=== PATIENT | female | born 1935 | race Caucasian/White ===

== ENCOUNTER 2017-12-09 02:07 | Emergency (ER) | payer MEDICARE, BC ==
[2017-12-09] MEDS ORDERED: Aspirin 81 MG Tab.Chew PO ONE (02:38)
[2017-12-09] MEDS ORDERED: Alum Hydrox/Mag Hydrox/Simeth 30 ML, Lidocaine 2% 15 ML PO ONE ×2 (02:38)
--- NOTE | 2017-12-09 02:41 | EDM.PDOC ---
ED HPI GENERAL MEDICAL PROBLEM - General Chief Complaint: Chest Pain Stated Complaint: CHEST PAINS Time Seen by Provider: 12/09/17 02:25 - History of Present Illness INITIAL COMMENTS - FREE TEXT/NARRATIVE: 82-year-old female presents emergency room with chest pain. Chest pain started about an hour and a half ago she describes it as a burning underneath her sternum. The patient has had similar episodes in the past she's had myocardial infarction the past is been difficult to find with no significant EKG changes and no significant troponin rises. With her last IL she had a mild troponin rise and because she was not a candidate for stress testing was sent to [facility] where she underwent cardiac catheterization had 3 stents placed. Bilateral Chest Pain Score (Numeric/FACES): 9 - Related Data Allergies Allergy/AdvReac Type Severity Reaction Status Date / Time azithromycin Allergy Edema Verified 12/09/17 02:13 hydrocodone Allergy Airway Verified 12/09/17 02:13 Tightness Penicillins Allergy Swelling Verified 12/09/17 02:13 Home Meds: Home Meds Furosemide [Lasix] 40 mg PO DAILY 02/18/14 [History] Warfarin [Coumadin] 5 mg PO DAILY 02/18/14 [History] Ergocalciferol (Vitamin D2) [Vitamin D2] 50,000 units PO ASDIRECTED 04/18/14 [ History] Allopurinol [Allopurinol] 300 mg PO DAILY 04/03/16 [History] Atenolol 50 mg PO DAILY 04/03/16 [History] Calcium Carbonate [Calcium] 1,000 mg PO DAILY 04/03/16 [History] Cholecalciferol (Vitamin D3) [Vitamin D3] 1,000 unit PO DAILY 04/03/16 [History] Colchicine 0.6 mg PO ASDIRECTED 04/03/16 [History] Losartan [Cozaar] 50 mg PO DAILY 04/03/16 [History] Metoprolol Tartrate 12.5 mg PO BID 04/03/16 [History] Pantoprazole Sodium [Protonix] 40 mg PO DAILY 04/03/16 [History] atorvaSTATin [Lipitor] 40 mg PO BEDTIME 04/03/16 [History] Sucralfate [Carafate] 1 gm PO QID #30 tablet 12/09/17 [Rx] Past Medical History Cardiovascular History: Reports: Hypertension, [place], Stents Respiratory History: Reports: PE Gastrointestinal History: Reports: Diverticulosis, PUD Genitourinary History: Reports: Chronic Renal Insuffiency, Urinary Incontinence STONE CUTTER History: Reports: Musculoskeletal History: Reports: Back Pain, Chronic, Gout, Osteoarthritis, Osteoporosis Endocrine/Metabolic History: Reports: Obesity/BMI 30+ - Past Surgical History GI Surgical History: Reports: Appendectomy, Cholecystectomy, Colon, Colonoscopy , EGD Musculoskeletal Surgical History: Reports: Knee Replacement, Shoulder Replacement, Shoulder Surgery Social & Family History - Family History Family Medical History: Noncontributory - Tobacco Use Smoking Status *Q: Never Smoker Second Hand Smoke Exposure: No - Alcohol Use Days Per Week of Alcohol Use: 0 - Recreational Drug Use Recreational Drug Use: No - Living Situation & Occupation Living situation: Reports: , Alone Occupation: Retired ED ROS GENERAL - Review of Systems Review Of Systems: See Below Constitutional: Reports: Fever, Weight Gain Respiratory: Reports: Cough, Sputum Cardiovascular: Reports: Chest Pain GI/Abdominal: Reports: Other (Epigastric discomfort). Denies: Constipation, Diarrhea, Nausea, Vomiting : Reports: No Symptoms Musculoskeletal: Reports: No Symptoms Skin: Reports: No Symptoms Neurological: Reports: No Symptoms ED EXAM, GENERAL - Physical Exam Exam: See Below Exam Limited By: No Limitations General Appearance: Alert, No Apparent Distress Head: Atraumatic, Normocephalic Neck: Normal Inspection, Supple, Non-Tender, Full Range of Motion. No: Lymphadenopathy (L), Lymphadenopathy (R) Respiratory/Chest: No Respiratory Distress, Lungs Clear, Decreased Breath Sounds. No: Crackles, Rales, Rhonchi, Wheezing Cardiovascular: Regular Rate, Rhythm, No Edema, No Murmur GI/Abdominal: Normal Bowel Sounds, Soft, Other (She has significant epigastric and left upper quadrant discomfort) Back Exam: Normal Inspection. No: CVA Tenderness (L), CVA Tenderness (R) Extremities: Normal Inspection, No Pedal Edema Neurological: Alert, Oriented, Normal Cognition Psychiatric: Normal Affect Skin Exam: Warm, Dry EKG INTERPRETATION Rhythm: NSR Tennyson: Normal P-Wave: Absent (First-degree AV block) QRS: Other (Borderline poor R-wave progression) ST-T: Other (Specific nondiagnostic ST-T wave changes mild depression V4 5 and 6 ) QT: Normal EKG Interpretation Comments: No significant change. First degree AV block not seen on prior Course - Vital Signs Last Recorded V/S: Last Vital Signs Temp 36.0 C 12/09/17 02:14 Pulse 61 12/09/17 02:14 Resp 29 H 12/09/17 02:14 BP 117/55 L 12/09/17 02:58 Pulse Ox 96 12/09/17 02:14 - Orders/Labs/Meds Orders: Active Orders 24 hr Category Date Time Status EKG Documentation Completion [RC] STAT Care 12/09/17 02:36 Active Chest 1V Frontal [CR] Stat Exams 12/09/17 02:36 Taken Chest 2V [CR] Stat Exams 12/09/17 03:54 Taken Nitroglycerin [Nitrostat] Med 12/09/17 02:38 Active 0.4 mg SL Q5M PRN Sodium Chloride 0.9% [Normal Saline] 1,000 ml Med 12/09/17 02:45 Active IV ASDIRECTED Medication Orders Sodium Chloride (Normal Saline) 1,000 mls @ 50 mls/hr IV ASDIRECTED LJ Last Admin: 12/09/17 02:51 Dose: 50 mls/hr Nitroglycerin (Nitrostat) 0.4 mg SL Q5M PRN PRN Reason: Chest Pain Last Admin: 12/09/17 02:58 Dose: 0.4 mg Admin: 12/09/17 02:53 Dose: 0.4 mg Labs: Laboratory Tests 12/09/17 12/09/17 12/09/17 Range/Units 02:40 02:40 02:40 WBC 9.45 (3.98-10.04) K/mm3 RBC 4.12 (3.98-5.22) M/mm3 Hgb 12.4 (11.2-15.7) gm/L Hct 38.8 (34.1-44.9) % MCV 94.2 (79.4-94.8) fl MCH 30.1 (25.6-32.2) pg MCHC 32.0 L (32.2-35.5) g/dl RDW Std Deviation 49.7 H (36.4-46.3) fL Plt Count 229 (182-369) K/mm3 MPV 9.6 (9.4-12.3) fl Neutrophils % (Manual) 63 H (40-60) % Band Neutrophils % 0 (0-10) % Lymphocytes % (Manual) 28 (20-40) % Atypical Lymphs % 2 % Monocytes % (Manual) 5 (2-10) % Eosinophils % (Manual) 1 (0.7-5.8) % Basophils % (Manual) 1 (0.1-1.2) Platelet Estimate Adequate Plt Morphology Comment Normal Poikilocytosis 1+ slight Anisocytosis 1+ slight Microcytosis 1+ slight Macrocytosis 1+ slight Tear Drop Cells 1+ slight RBC Morph Comment Abnormal PT 10.5 (8.0-13.0) SECONDS INR 0.98 APTT 26 (22-36) SECONDS Sodium 140 (136-145) mEq/L Potassium 4.0 (3.5-5.1) mEq/L Chloride 103 (98-107) mEq/L Carbon Dioxide 28 (21-32) mEq/L Anion Gap 13.0 (5-15) BUN 23 H (7-18) mg/dL Creatinine 1.4 H (0.55-1.02) mg/dL Est Cr Clr Drug Dosing 30.00 mL/min Estimated GFR (MDRD) 36 (>60) mL/min BUN/Creatinine Ratio 16.4 (14-18) Glucose 123 H (83-115) mg/dL Calcium 9.2 (8.5-10.1) mg/dL Total Bilirubin 0.8 (0.2-1.0) mg/dL AST 90 H (15-37) U/L ALT 42 (14-59) U/L Alkaline Phosphatase 121 H (46-116) U/L Troponin I < 0.017 (0.00-0.056) ng/mL Total Protein 7.0 (6.4-8.2) g/dl Albumin 3.3 L (3.4-5.0) g/dl Globulin 3.7 gm/dL Albumin/Globulin Ratio 0.9 L (1-2) 12/09/17 Range/Units 06:05 WBC (3.98-10.04) K/mm3 RBC (3.98-5.22) M/mm3 Hgb (11.2-15.7) gm/L Hct (34.1-44.9) % MCV (79.4-94.8) fl MCH (25.6-32.2) pg MCHC (32.2-35.5) g/dl RDW Std Deviation (36.4-46.3) fL Plt Count (182-369) K/mm3 MPV (9.4-12.3) fl Neutrophils % (Manual) (40-60) % Band Neutrophils % (0-10) % Lymphocytes % (Manual) (20-40) % Atypical Lymphs % % Monocytes % (Manual) (2-10) % Eosinophils % (Manual) (0.7-5.8) % Basophils % (Manual) (0.1-1.2) Platelet Estimate Plt Morphology Comment Poikilocytosis Anisocytosis Microcytosis Macrocytosis Tear Drop Cells RBC Morph Comment PT (8.0-13.0) SECONDS INR APTT (22-36) SECONDS Sodium (136-145) mEq/L Potassium (3.5-5.1) mEq/L Chloride (98-107) mEq/L Carbon Dioxide (21-32) mEq/L Anion Gap (5-15) BUN (7-18) mg/dL Creatinine (0.55-1.02) mg/dL Est Cr Clr Drug Dosing mL/min Estimated GFR (MDRD) (>60) mL/min BUN/Creatinine Ratio (14-18) Glucose (83-115) mg/dL Calcium (8.5-10.1) mg/dL Total Bilirubin (0.2-1.0) mg/dL AST (15-37) U/L ALT (14-59) U/L Alkaline Phosphatase (46-116) U/L Troponin I < 0.017 (0.00-0.056) ng/mL Total Protein (6.4-8.2) g/dl Albumin (3.4-5.0) g/dl Globulin gm/dL Albumin/Globulin Ratio (1-2) Meds: Medications Generic Name Dose Route Start Last Admin Trade Name Freq PRN Reason Stop Dose Admin Sodium Chloride 1,000 mls @ 50 mls/hr 12/09/17 02:45 12/09/17 02:51 Normal Saline IV 50 mls/hr ASDIRECTED LJ Administration Nitroglycerin 0.4 mg 12/09/17 02:38 12/09/17 02:58 Nitrostat SL 0.4 mg Q5M PRN Administration Chest Pain Discontinued Medications Generic Name Dose Route Start Last Admin Trade Name Freq PRN Reason Stop Dose Admin Aspirin 324 mg 12/09/17 02:38 12/09/17 02:51 Aspirin PO 12/09/17 02:39 324 mg ONETIME ONE Administration Al Hydroxide/Mg Hydroxide 30 0 ml 12/09/17 02:38 12/09/17 03:07 ml/ Lidocaine HCl 15 ml PO 12/09/17 02:39 45 ml ONETIME ONE Administration Sucralfate 1 gm 12/09/17 03:52 12/09/17 04:02 Carafate PO 12/09/17 03:53 1 gm ONETIME ONE Administration - Re-Assessments/Exams Free Text/Narrative Re-Assessment/Exam: 12/09/17 03:52 Patient had some mild improvement in her chest pain with 2 sublingual nitroglycerin she had more significant improvement with the GI cocktail and at this point she has minimal discomfort. The patient's been having a more productive cough cough and up chunks stuff her portable chest x-ray is limited by body habitus and I cannot exclude a developing infiltrate we will try and obtain a two-view chest x-ray. 12/09/17 07:16 Ecotrin troponin is negative and the patient is been essentially pain-free. The patient had a dramatic improvement after getting GI cocktail however she's had atherosclerotic cardiovascular disease 3 stents placed year and a half ago. Discussed situation with her she like to go home. I think this is reasonable I think she was having some reflux and possibly some microaspiration that was causing her cough. She should continue her PPI therapy will add Carafate for one week she should follow-up with Dr. Mckeon Departure - Departure Time of Disposition: 07:26 Disposition: Still A Patient 30 Clinical Impression: Chest pain, GERD (gastroesophageal reflux disease) Prescriptions: Sucralfate [Carafate] 1 gm PO QID #30 tablet Referrals: Gilberto Roberts MD [Primary Care Provider] - Forms: ED Department Discharge Additional Instructions: Return to the emergency room with any questions problems worsening symptoms. Follow up with Dr. Mckeon in the next couple of days to reassess your situation. He been started on Carafate take this 4 times a day before each meal and at bedtime. Remember to take all your other medications at least an hour or 2 hours after using this medication. - My Orders Last 24 Hours: My Active Orders 12/09/17 02:36 EKG Documentation Completion [RC] STAT Chest 1V Frontal [CR] Stat 12/09/17 02:38 Nitroglycerin [Nitrostat] 0.4 mg SL Q5M PRN 12/09/17 02:45 Sodium Chloride 0.9% [Normal Saline] 1,000 ml IV ASDIRECTED 12/09/17 03:54 Chest 2V [CR] Stat - Assessment/Plan Last 24 Hours: My Active Orders 12/09/17 02:36 EKG Documentation Completion [RC] STAT Chest 1V Frontal [CR] Stat 12/09/17 02:38 Nitroglycerin [Nitrostat] 0.4 mg SL Q5M PRN 12/09/17 02:45 Sodium Chloride 0.9% [Normal Saline] 1,000 ml IV ASDIRECTED 12/09/17 03:54 Chest 2V [CR] Stat
[2017-12-09] MEDS ORDERED: Sodium Chloride 0.9% 1,000 ML IV SCH (02:45)
[2017-12-09] MEDS: Nitroglycerin 0.4 MG Tab.SL SL PRN ×2 (02:53→02:58)
[2017-12-09 02:59] VITALS: BP 117/55
[2017-12-09] MEDS ORDERED: Sucralfate Suspension 1 GM/10 ML Cup PO ONE (03:52)
--- NOTE | 2017-12-09 08:20 | CR ---
Chest: Frontal view of the chest was obtained. Comparison: Prior chest x-ray of 02/27/16. Heart is slightly enlarged. Tortuous thoracic aorta is seen. 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 Lungs show no acute parenchymal change. Bony structures are grossly intact. Impression: 1. Incidental findings. Nothing acute is appreciated on two-view chest x-ray. Diagnostic code #2
--- NOTE | 2017-12-09 08:20 | CR ---
Chest: Two views of the chest were obtained. Comparison: Prior chest x-ray of 12/09/17. Heart size is felt to be at the upper limits of normal. Tortuous thoracic aorta is seen. Lungs are clear. Right shoulder prosthesis is noted. Degenerative spurring is noted within the spine. Surgical clips are seen within the upper abdomen. Impression: 1. Nothing acute is appreciated on two-view chest x-ray. Incidental findings as noted above. Diagnostic code #2
== END 2017-12-09 07:45 | disposition home or self-care (01) ==
LOC: JD.ED 02:07
DX: K21.9 Gastro-esophageal reflux disease without esophagitis (principal); R07.9 Chest pain, unspecified; I25.2 Old myocardial infarction; Z88.6 Allergy status to analgesic agent; Z88.0 Allergy status to penicillin; Z88.1 Allergy status to other antibiotic agents; Z79.01 Long term (current) use of anticoagulants; Z79.899 Other long term (current) drug therapy; I10 Essential (primary) hypertension
CPT/HCPCS: 36415; 71045; 71046; 80053; 84484; 85025; 85610; 85730; 93005; 96360; 96361; 99285; A9270; J7040; 99284

== ENCOUNTER 2018-05-15 13:57 | Observation (INO) | payer MEDICARE, BC ==
[2018-05-15] MEDS ORDERED: Ondansetron 4 MG/2 ML SDV IVPUSH ONE (16:07)
[2018-05-15] MEDS ORDERED: Sodium Chloride 0.9% 10 ML Syringe FLUSH PRN (16:07)
[2018-05-15] MEDS ORDERED: HYDROmorphone 0.5 MG/0.5 ML SYRINGE IVPUSH ONE ×2 (16:07→18:07)
--- NOTE | 2018-05-15 16:24 | EDM.PDOC ---
ED HPI GENERAL MEDICAL PROBLEM - General Chief Complaint: Headache Stated Complaint: [facility] Time Seen by Provider: 05/15/18 15:53 Source of Information: Reports: Patient, Family History Limitations: Reports: No Limitations - History of Present Illness INITIAL COMMENTS - FREE TEXT/NARRATIVE: 82-year-old female arrives via ambulance service for evaluation and treatment of neck pain, neck swelling and a headache. Reportedly her symptoms started about one week ago on Thursday. They've progressively gotten worse. She was seen by her primary care provider on Thursday. She had an MRI of her cervical spine done. Associated diffuse arthritic changes. Currently working on getting an appointment with neurosurgery in the near future. Primary care provider prescribed her oxycodone and a muscle relaxer. Instructed to come to the ED if these do not help. She has been taking these as prescribed but she continues to have significant pain. Upon arrival to the ED she is complaining of significant neck and a headache. States her entire head is involved. Family is also very concerned about swelling to the right side of her neck. Due to long wait times in the ED family gave her 5 mg oxycodone prior to me evaluating the patient. She was getting medications per EMS. Duration: Week(s): (1) Location: Reports: Head, Neck Neck Pain Score (Numeric/FACES): 2 - Related Data Allergies Allergy/AdvReac Type Severity Reaction Status Date / Time adhesive tape Allergy Rash Verified 05/15/18 15:32 azithromycin Allergy Edema Verified 05/15/18 15:32 hydrocodone Allergy Airway Verified 05/15/18 15:32 Tightness Latex, Natural Rubber Allergy Rash Verified 05/15/18 15:32 Penicillins Allergy Swelling Verified 05/15/18 15:32 Sulfa (Sulfonamide Allergy Other Verified 05/15/18 15:32 Antibiotics) Home Meds: Home Meds Furosemide [Lasix] 40 mg PO DAILY 02/18/14 [History] Ergocalciferol (Vitamin D2) [Vitamin D2] 50,000 units PO ASDIRECTED 04/18/14 [ History] Allopurinol 300 mg PO DAILY 04/03/16 [History] Atenolol 50 mg PO DAILY 04/03/16 [History] Calcium Carbonate [Calcium] 1,000 mg PO DAILY 04/03/16 [History] Cholecalciferol (Vitamin D3) [Vitamin D3] 1,000 unit PO DAILY 04/03/16 [History] Losartan [Cozaar] 50 mg PO DAILY 04/03/16 [History] Metoprolol Tartrate 12.5 mg PO BID 04/03/16 [History] Pantoprazole Sodium [Protonix] 40 mg PO DAILY 04/03/16 [History] atorvaSTATin [Lipitor] 40 mg PO BEDTIME 04/03/16 [History] Apixaban [Eliquis] 1 tab PO BID 05/15/18 [History] Pnv17/Iron/Fa/Fish Oil/Dha/Om [Elite-OB 400] 05/15/18 [History] Past Medical History Cardiovascular History: Reports: Hypertension, MT, Stents Respiratory History: Reports: PE, Sleep Apnea Gastrointestinal History: Reports: Diverticulosis, PUD Genitourinary History: Reports: Chronic Renal Insuffiency, Urinary Incontinence TAKER OUT History: Reports: Musculoskeletal History: Reports: Back Pain, Chronic, Fracture, Gout, Osteoarthritis, Osteoporosis Endocrine/Metabolic History: Reports: Obesity/BMI 30+ - Past Surgical History Cardiovascular Surgical History: Reports: Coronary Artery Stent Other Cardiovascular Surgeries/Procedures: x 1 stent GI Surgical History: Reports: Appendectomy, Cholecystectomy, Colon, Colonoscopy , EGD Female Surgical History: Reports: None Musculoskeletal Surgical History: Reports: Knee Replacement, Shoulder Replacement, Shoulder Surgery Social & Family History - Family History Family Medical History: Noncontributory - Tobacco Use Smoking Status *Q: Never Smoker Second Hand Smoke Exposure: No - Caffeine Use Caffeine Use: Reports: Coffee - Recreational Drug Use Recreational Drug Use: No - Living Situation & Occupation Living situation: Reports: , Alone Occupation: Retired ED ROS GENERAL - Review of Systems Review Of Systems: See Below Constitutional: Denies: Fever, Weakness Respiratory: Denies: Shortness of Breath Cardiovascular: Denies: Chest Pain GI/Abdominal: Reports: Nausea. Denies: Abdominal Pain, Vomiting Musculoskeletal: Reports: Neck Pain Neurological: Reports: Headache. Denies: Numbness, Tingling - Physical Exam Exam: See Below Exam Limited By: No Limitations General Appearance: Alert, WD/WN, Moderate Distress, Obese Eye Exam: Bilateral Eye: Normal Inspection, PERRL Ears: Normal External Exam Nose: Normal Inspection Throat/Mouth: Normal Inspection, Normal Lips, Normal Voice, No Airway Compromise Head Exam: Atraumatic, Normocephalic Neck: Normal Inspection, Other (No swelling to the neck appreciated.) Respiratory/Chest: No Respiratory Distress, Lungs Clear, Normal Breath Sounds Cardiovascular: Normal Peripheral Pulses, Regular Rate, Rhythm, No Murmur GI/Abdominal: Soft, Non-Tender Neuro Exam (Abbreviated): Alert, Normal Cognition, Other (Gl[employer] strength 5 out of 5 bilaterally.) Extremities: Normal Inspection Psychiatric: Normal Affect, Normal Mood Skin Exam: Warm, Dry, Normal Color EKG INTERPRETATION EKG Date: 05/15/18 Time: 16:55 Rhythm: NSR Rate (Beats/Min): 81 [place]: Normal P-Wave: Present QRS: Normal ST-T: Normal QT: Normal EKG Interpretation Comments: Normal sinus rhythm at 81 bpm. No scheming changes. No left axis deviation. No left ventricular hypertrophy. No interventricular conduction delay. QTC within normal limits at 460. Reviewed by myself and Dr. Still. Course - Vital Signs Last Recorded V/S: Last Vital Signs Temp 98.7 F 05/15/18 14:18 Pulse 70 05/15/18 22:47 Resp 20 05/15/18 22:16 BP 169/82 H 05/15/18 22:31 Pulse Ox 93 L 05/15/18 22:47 - Orders/Labs/Meds Orders: Active Orders 24 hr Category Date Time Status Cardiac Monitoring [RC] . DIRECTED Care 05/15/18 16:16 Active Peripheral IV Care [RC] . DIRECTED Care 05/15/18 16:08 Active Chest 1V Frontal [CR] Stat Exams 05/15/18 16:07 Taken Head wo Cont [CT] Stat Exams 05/15/18 16:07 Taken CULTURE BLOOD [BC] Stat Lab 05/15/18 16:40 Received CULTURE BLOOD [BC] Stat Lab 05/15/18 17:09 Received RESPIRATORY PANEL Stat Lab 05/15/18 19:22 Ordered UA W/MICROSCOPIC [URIN] Stat Lab 05/15/18 22:00 Ordered [facility] [REF] Stat Lab 05/15/18 17:04 Received Sodium Chloride 0.9% [Saline Flush] Med 05/15/18 16:07 Active 10 ml FLUSH ASDIRECTED PRN Blood Culture x2 Reflex Set [OM.PC] Stat Oth 05/15/18 16:10 Ordered Peripheral IV Insertion Adult [OM.PC] Routine Oth 05/15/18 16:06 Ordered Medication Orders Apixaban (Eliquis) 2.5 mg PO BID LJ Gabapentin (Neurontin) 300 mg PO TID LJ Hydromorphone HCl (Dilaudid) 0.5 mg IVPUSH Q4H PRN PRN Reason: Pain Methylprednisolone Sodium Succinate (Solu-Medrol) 125 mg IVPUSH Q6H LJ Last Admin: 05/16/18 00:20 Dose: 125 mg Sodium Chloride (Saline Flush) 10 ml FLUSH ASDIRECTED PRN PRN Reason: Keep Vein Open Last Admin: 05/15/18 16:21 Dose: 10 ml Labs: Laboratory Tests 05/15/18 05/15/18 05/15/18 Range/Units 14:15 16:15 17:04 WBC 10.11 H (3.98-10.04) K/mm3 RBC 4.16 (3.98-5.22) M/mm3 Hgb 12.8 (11.2-15.7) gm/L Hct 40.1 (34.1-44.9) % MCV 96.4 H (79.4-94.8) fl MCH 30.8 (25.6-32.2) pg MCHC 31.9 L (32.2-35.5) g/dl RDW Std Deviation 47.8 H (36.4-46.3) fL Plt Count 216 (182-369) K/mm3 MPV 9.8 (9.4-12.3) fl Neutrophils % (Manual) 70 H (40-60) % Band Neutrophils % 8 (0-10) % Lymphocytes % (Manual) 16 L (20-40) % Atypical Lymphs % 0 % Monocytes % (Manual) 6 (2-10) % Eosinophils % (Manual) 0 L (0.7-5.8) % Basophils % (Manual) 0 L (0.1-1.2) Toxic Granulation 1+ slight Platelet Estimate Adequate RBC Morph Comment Normal Sodium 138 (136-145) mEq/L Potassium 5.0 (3.5-5.1) mEq/L Chloride 104 (98-107) mEq/L Carbon Dioxide 28 (21-32) mEq/L Anion Gap 11.0 (5-15) BUN 18 (7-18) mg/dL Creatinine 1.1 H (0.55-1.02) mg/dL Est Cr Clr Drug Dosing TNP Estimated GFR (MDRD) 48 (>60) mL/min BUN/Creatinine Ratio 16.4 (14-18) Glucose 102 (83-115) mg/dL Lactic Acid 0.7 (0.4-2.0) mmol/L Calcium 9.0 (8.5-10.1) mg/dL Magnesium 1.8 (1.8-2.4) mg/dl Total Bilirubin 0.4 (0.2-1.0) mg/dL AST 31 (15-37) U/L ALT 21 (14-59) U/L Alkaline Phosphatase 96 (46-116) U/L Troponin I < 0.017 (0.00-0.056) ng/mL C-Reactive Protein 4.0 H* (<1.0) mg/dL Total Protein 7.4 (6.4-8.2) g/dl Albumin 3.2 L (3.4-5.0) g/dl Globulin 4.2 gm/dL Albumin/Globulin Ratio 0.8 L (1-2) Meds: Medications Generic Name Dose Route Start Last Admin Trade Name Freq PRN Reason Stop Dose Admin Apixaban 2.5 mg 05/16/18 09:00 Eliquis PO BID LJ Gabapentin 300 mg 05/16/18 09:00 Neurontin PO TID LJ Hydromorphone HCl 0.5 mg 05/15/18 23:04 Dilaudid IVPUSH Q4H PRN Pain Methylprednisolone Sodium Succinate 125 mg 05/16/18 01:00 05/16/18 00:20 Solu-Medrol IVPUSH 125 mg Q6H LJ Administration Sodium Chloride 10 ml 05/15/18 16:07 05/15/18 16:21 Saline Flush FLUSH 10 ml ASDIRECTED PRN Administration Keep Vein Open Discontinued Medications Generic Name Dose Route Start Last Admin Trade Name Freq PRN Reason Stop Dose Admin Gabapentin 300 mg 05/15/18 21:23 05/15/18 21:50 Neurontin PO 05/15/18 21:24 300 mg ONETIME ONE Administration Hydromorphone HCl 0.5 mg 05/15/18 16:07 05/15/18 16:20 Dilaudid IVPUSH 05/15/18 16:08 0.5 mg ONETIME ONE Administration Hydromorphone HCl 0.5 mg 05/15/18 18:07 05/15/18 18:24 Dilaudid IVPUSH 05/15/18 18:08 0.5 mg ONETIME ONE Administration Sodium Chloride 1,000 mls @ 150 mls/hr 05/15/18 16:52 05/15/18 17:12 Normal Saline IV 05/15/18 23:31 150 mls/hr ONETIME ONE Administration Ketorolac Tromethamine 30 mg 05/15/18 21:23 05/15/18 21:50 Toradol IM 05/15/18 21:24 30 mg ONETIME ONE Administration Methylprednisolone Sodium Succinate 125 mg 05/15/18 19:16 05/15/18 19:32 Solu-Medrol IVPUSH 05/15/18 19:17 125 mg ONETIME ONE Administration Ondansetron HCl 4 mg 05/15/18 16:07 05/15/18 16:21 Zofran IVPUSH 05/15/18 16:08 4 mg ONETIME ONE Administration - Radiology Interpretation Free Text/Narrative:: One view chest x-ray shows cardiomegaly. Small left-sided pleural effusion. No acute intrathoracic process. CT of the head without contrast impression per view had no acute intercerebral abnormality or injury. Mild frontal temporal and temporoparietal cerebral atrophy, otherwise brain within normal limits for age. No evidence of encephalitis. - Re-Assessments/Exams Free Text/Narrative Re-Assessment/Exam: 05/15/18 19:25 Patient continues to complain of significant pain despite receiving 2 0.5 mg IV doses of Dilaudid. She was also given 5 mg of oxycodone by her family prior to me seeing her. She states that her pain is not improved at all. However, She does look more comfortable. I was able to get ahold Dr. Mckeon, her primary care provider. He is working on having her see neurosurgery. He also did not appreciate any swelling to her neck yesterday. He also did not appreciate any decreased strength. She stated to him that she was having some numbness to her one of her fingers. Case discussed with Dr. Garcia, hospitalist construction superintendent. Asked we try Solu-Medrol 125 mg IV, may consider observation admission if not better. 08/18/18 21:27 Patient has been sleeping for about an hour. Her family reports prior to her falling asleep she still continued to complain of significant headache and neck pain. As Stated she is sleeping and does not appear to be any distress. Family does not feel it is appropriate for her to go home. They would like her admitted for pain control. She expressed to me earlier that she does not feel comfortable going home. Again discussed with Dr. Garcia. Asked we give IM Toradol and gabapentin. She' ll be an observation admission. Blood cultures, West Nile and respiratory panel are pending. Departure - Departure Time of Disposition: 21:40 Disposition: Refer to Observation Condition: Fair Clinical Impression: Headache, Neck pain - Discharge Information *PRESCRIPTION DRUG MONITORING PROGRAM REVIEWED*: No *COPY OF PRESCRIPTION DRUG MONITORING REPORT IN PATIENT NATALIE: No - My Orders Last 24 Hours: My Active Orders 05/15/18 16:06 Peripheral IV Insertion Adult [OM.PC] Routine 05/15/18 16:07 Chest 1V Frontal [CR] Stat Head wo Cont [CT] Stat Sodium Chloride 0.9% [Saline Flush] 10 ml FLUSH ASDIRECTED PRN 05/15/18 16:08 Peripheral IV Care [RC] . DIRECTED 05/15/18 16:10 Blood Culture x2 Reflex Set [OM.PC] Stat 05/15/18 16:16 Cardiac Monitoring [RC] . DIRECTED 05/15/18 16:40 CULTURE BLOOD [BC] Stat 05/15/18 17:04 [facility] [REF] Stat 05/15/18 17:09 CULTURE BLOOD [BC] Stat 05/15/18 19:22 RESPIRATORY PANEL Stat 05/15/18 22:00 UA W/MICROSCOPIC [URIN] Stat - Assessment/Plan Last 24 Hours: My Active Orders 05/15/18 16:06 Peripheral IV Insertion Adult [OM.PC] Routine 05/15/18 16:07 Chest 1V Frontal [CR] Stat Head wo Cont [CT] Stat Sodium Chloride 0.9% [Saline Flush] 10 ml FLUSH ASDIRECTED PRN 05/15/18 16:08 Peripheral IV Care [RC] . DIRECTED 05/15/18 16:10 Blood Culture x2 Reflex Set [OM.PC] Stat 05/15/18 16:16 Cardiac Monitoring [RC] . DIRECTED 05/15/18 16:40 CULTURE BLOOD [BC] Stat 05/15/18 17:04 [facility] [REF] Stat 05/15/18 17:09 CULTURE BLOOD [BC] Stat 05/15/18 19:22 RESPIRATORY PANEL Stat 05/15/18 22:00 UA W/MICROSCOPIC [URIN] Stat
[2018-05-15] MEDS ORDERED: Sodium Chloride 0.9% 1,000 ML IV ONE (16:52)
[2018-05-15] MEDS ORDERED: methylPREDNISolone Sodium Succinate 125 MG/2 ML SDV IVPUSH ONE (19:16)
[2018-05-15] MEDS ORDERED: Ketorolac 30 MG/ML SDV IM ONE (21:23)
[2018-05-15] MEDS ORDERED: Gabapentin 300 MG Cap PO ONE (21:23)
[2018-05-15] MEDS ORDERED: HYDROmorphone 1 MG/ML Syringe IVPUSH PRN (23:04)
[2018-05-16] MEDS: methylPREDNISolone Sodium Succinate 125 MG/2 ML SDV IVPUSH SCH ×4 (00:20→18:38)
--- NOTE | 2018-05-16 11:15 | PCM.HP ---
H&P History of Present Illness - General Date of Service: 05/16/18 Admit Problem/Dx: Admission Diagnosis/Problem Admission Diagnosis/Problem Neck pain Source of Information: Patient, Family, Provider History Limitations: Reports: No Limitations - History of Present Illness Initial Comments - Free Text/Narative: 82 year old female with multiple medical problems recently experienced moderate- severe neck pain, had a MRI of the cervical region which is abnormal. It showed multiple levels of diffuse disc space narrowing, diffuse posterior disc bulging and neural foraminal stenosis. She was recently started on a narcotic without relief, and presents to the ED. Onset of Symptoms: Reports: Sudden Symptom Onset Date: 05/12/18 Duration of Symptoms: Reports: Day(s):, Getting Worse Location: Reports: Head, Neck Quality: Reports: Pressure Severity: Moderate Improves with: Reports: Medication Worsens with: Reports: None Associated Symptoms: Reports: Headaches, Weakness Neck Pain Score (Numeric/FACES): 2 - Related Data Allergies/Adverse Reactions: Allergies Allergy/AdvReac Type Severity Reaction Status Date / Time adhesive tape Allergy Rash Verified 05/16/18 00:48 azithromycin Allergy Edema Verified 05/16/18 00:48 hydrocodone Allergy Airway Verified 05/16/18 00:48 Tightness Latex, Natural Rubber Allergy Rash Verified 05/16/18 00:48 Penicillins Allergy Swelling Verified 05/16/18 00:48 Sulfa (Sulfonamide Allergy Other Verified 05/16/18 00:48 Antibiotics) Home Medications: Home Meds Furosemide [Lasix] 40 mg PO DAILY 02/18/14 [History] Ergocalciferol (Vitamin D2) [Vitamin D2] 50,000 units PO ASDIRECTED 04/18/14 [ History] Allopurinol 300 mg PO DAILY 04/03/16 [History] Atenolol 50 mg PO DAILY 04/03/16 [History] Calcium Carbonate [Calcium] 1,000 mg PO DAILY 04/03/16 [History] Cholecalciferol (Vitamin D3) [Vitamin D3] 1,000 unit PO DAILY 04/03/16 [History] Losartan [Cozaar] 50 mg PO DAILY 04/03/16 [History] Metoprolol Tartrate 12.5 mg PO BID 04/03/16 [History] Pantoprazole Sodium [Protonix] 40 mg PO DAILY 04/03/16 [History] atorvaSTATin [Lipitor] 40 mg PO BEDTIME 04/03/16 [History] Pnv17/Iron/Fa/Fish Oil/Dha/Om [Elite-OB 400] 05/15/18 [History] Apixaban [Eliquis] 5 mg PO DAILY 05/16/18 [History] Past Medical History HEENT History: Reports: Hard of Hearing, Other (See Below) Other HEENT History: wears bilateral hearing aides Cardiovascular History: Reports: Hypertension, [place], Stents Respiratory History: Reports: PE, Sleep Apnea Gastrointestinal History: Reports: Diverticulosis, PUD Genitourinary History: Reports: Chronic Renal Insuffiency, Urinary Incontinence [employer] 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: Musculoskeletal History: Reports: Back Pain, Chronic, Fracture, Gout, Osteoarthritis, Osteoporosis Endocrine/Metabolic History: Reports: Obesity/BMI 30+ - Infectious Disease History Infectious Disease History: Reports: Influenza - Past Surgical History Cardiovascular Surgical History: Reports: Coronary Artery Stent Other Cardiovascular Surgeries/Procedures: x 1 stent GI Surgical History: Reports: Appendectomy, Cholecystectomy, Colon, Colonoscopy , EGD Female Surgical History: Reports: None Musculoskeletal Surgical History: Reports: Knee Replacement, Shoulder Replacement, Shoulder Surgery Social & Family History - Family History Family Medical History: Noncontributory - Tobacco Use Smoking Status *Q: Never Smoker Second Hand Smoke Exposure: No - Caffeine Use Caffeine Use: Reports: Coffee Other Caffeine Use: 2-3 cups everyday - Recreational Drug Use Recreational Drug Use: No - Living Situation & Occupation Living situation: Reports: , Alone Occupation: Retired H&P Review of Systems - Review of Systems: Review Of Systems: See Below General: Reports: No Symptoms HEENT: Reports: Headaches Pulmonary: Reports: No Symptoms Cardiovascular: Reports: No Symptoms Gastrointestinal: Reports: No Symptoms Genitourinary: Reports: No Symptoms Musculoskeletal: Reports: Neck Pain Skin: Reports: No Symptoms Psychiatric: Reports: No Symptoms Neurological: Reports: No Symptoms Hematologic/Lymphatic: Reports: No Symptoms Immunologic: Reports: No Symptoms Exam - Exam Exam: See Below - Vital Signs Vital Signs: Last Vital Signs Temp 36.2 C 05/16/18 04:42 Pulse 79 05/16/18 04:42 Resp 14 05/16/18 04:42 BP 175/98 H 05/16/18 04:42 Pulse Ox 93 L 05/16/18 04:42 Weight: 157.805 kg - Exam Quality Assessment: Supplemental Oxygen, DVT Prophylaxis General: Alert, Oriented, Cooperative HEENT: Conjunctiva Clear, Nares Patent, Normal Nasal Septum, Pupils Equal, Pupils Reactive, PERRLA Neck: Trachea Midline Lungs: Normal Respiratory Effort Cardiovascular: Regular Rate, Regular Rhythm GI/Abdominal Exam: Normal Bowel Sounds, Soft, Non-Tender, No Organomegaly, No Distention (Female) Exam: Deferred Rectal (Female) Exam: Deferred Back Exam: Normal Inspection, Decreased Range of Motion (cervical) Extremities: Normal Inspection, Non-Tender Skin: Warm Neurological: Cranial Nerves Intact, Normal Gait, Normal Speech Neuro Extensive - Mental Status: Alert, Oriented x3, Memory Intact Neuro Extensive - Motor, Sensory, Reflexes: CN II-XII Intact, Normal Gait Psychiatric: Alert, Anxious - Patient Data Lab Results Last 24 hrs: Laboratory Results - last 24 hr 05/15/18 05/15/18 05/15/18 Range/Units 14:15 16:15 17:04 WBC 10.11 H (3.98-10.04) K/mm3 RBC 4.16 (3.98-5.22) M/mm3 Hgb 12.8 (11.2-15.7) gm/L Hct 40.1 (34.1-44.9) % MCV 96.4 H (79.4-94.8) fl MCH 30.8 (25.6-32.2) pg MCHC 31.9 L (32.2-35.5) g/dl RDW Std Deviation 47.8 H (36.4-46.3) fL Plt Count 216 (182-369) K/mm3 MPV 9.8 (9.4-12.3) fl Neut % (Auto) (34.0-71.1) % Lymph % (Auto) (19.3-51.7) % [place] % (Auto) (4.7-12.5) % Eos % (Auto) (0.7-5.8) Baso % (Auto) (0.1-1.2) % Neut # (Auto) (1.56-6.13) K/mm3 Lymph # (Auto) (1.18-3.74) K/mm3 [place] # (Auto) (0.24-0.36) K/mm3 Eos # (Auto) (0.04-0.36) K/mm3 Baso # (Auto) (0.01-0.08) K/mm3 Neutrophils % (Manual) 70 H (40-60) % Band Neutrophils % 8 (0-10) % Lymphocytes % (Manual) 16 L (20-40) % Atypical Lymphs % 0 % Monocytes % (Manual) 6 (2-10) % Eosinophils % (Manual) 0 L (0.7-5.8) % Basophils % (Manual) 0 L (0.1-1.2) Manual Slide Review Toxic Granulation 1+ slight Platelet Estimate Adequate RBC Morph Comment Normal Sodium 138 (136-145) mEq/L Potassium 5.0 (3.5-5.1) mEq/L Chloride 104 (98-107) mEq/L Carbon Dioxide 28 (21-32) mEq/L Anion Gap 11.0 (5-15) BUN 18 (7-18) mg/dL Creatinine 1.1 H (0.55-1.02) mg/dL Est Cr Clr Drug Dosing TNP Estimated GFR (MDRD) 48 (>60) mL/min BUN/Creatinine Ratio 16.4 (14-18) Glucose 102 (83-115) mg/dL Lactic Acid 0.7 (0.4-2.0) mmol/L Calcium 9.0 (8.5-10.1) mg/dL Magnesium 1.8 (1.8-2.4) mg/dl Total Bilirubin 0.4 (0.2-1.0) mg/dL AST 31 (15-37) U/L ALT 21 (14-59) U/L Alkaline Phosphatase 96 (46-116) U/L Troponin I < 0.017 (0.00-0.056) ng/mL C-Reactive Protein 4.0 H* (<1.0) mg/dL Total Protein 7.4 (6.4-8.2) g/dl Albumin 3.2 L (3.4-5.0) g/dl Globulin 4.2 gm/dL Albumin/Globulin Ratio 0.8 L (1-2) 05/16/18 05/16/18 Range/Units 06:45 06:45 WBC 7.61 (3.98-10.04) K/mm3 RBC 4.28 (3.98-5.22) M/mm3 Hgb 13.0 (11.2-15.7) gm/L Hct 41.0 (34.1-44.9) % MCV 95.8 H (79.4-94.8) fl MCH 30.4 (25.6-32.2) pg MCHC 31.7 L (32.2-35.5) g/dl RDW Std Deviation 45.5 (36.4-46.3) fL Plt Count 213 (182-369) K/mm3 MPV 9.4 (9.4-12.3) fl Neut % (Auto) 91.7 H (34.0-71.1) % Lymph % (Auto) 7.6 L (19.3-51.7) % [place] % (Auto) 0.4 L (4.7-12.5) % Eos % (Auto) 0 L (0.7-5.8) Baso % (Auto) 0.0 L (0.1-1.2) % Neut # (Auto) 6.98 H (1.56-6.13) K/mm3 Lymph # (Auto) 0.58 L (1.18-3.74) K/mm3 [place] # (Auto) 0.03 L (0.24-0.36) K/mm3 Eos # (Auto) 0.00 L (0.04-0.36) K/mm3 Baso # (Auto) 0.00 L (0.01-0.08) K/mm3 Neutrophils % (Manual) (40-60) % Band Neutrophils % (0-10) % Lymphocytes % (Manual) (20-40) % Atypical Lymphs % % Monocytes % (Manual) (2-10) % Eosinophils % (Manual) (0.7-5.8) % Basophils % (Manual) (0.1-1.2) Manual Slide Review Normal smear Toxic Granulation Platelet Estimate RBC Morph Comment Sodium 138 (136-145) mEq/L Potassium 5.0 (3.5-5.1) mEq/L Chloride 104 (98-107) mEq/L Carbon Dioxide 26 (21-32) mEq/L Anion Gap 13.0 (5-15) BUN 18 (7-18) mg/dL Creatinine 1.1 H (0.55-1.02) mg/dL Est Cr Clr Drug Dosing 36.70 Estimated GFR (MDRD) 48 (>60) mL/min BUN/Creatinine Ratio 16.4 (14-18) Glucose 165 H (83-115) mg/dL Lactic Acid (0.4-2.0) mmol/L Calcium 9.3 (8.5-10.1) mg/dL Magnesium (1.8-2.4) mg/dl Total Bilirubin (0.2-1.0) mg/dL AST (15-37) U/L ALT (14-59) U/L Alkaline Phosphatase (46-116) U/L Troponin I (0.00-0.056) ng/mL C-Reactive Protein 8.5 H* (<1.0) mg/dL Total Protein (6.4-8.2) g/dl Albumin (3.4-5.0) g/dl Globulin gm/dL Albumin/Globulin Ratio (1-2) Result Diagrams: 05/16/18 06:45 05/16/18 06:45 Amilcar Results Last 24 hrs: Microbiology 05/15/18 16:40 Anaerobic Blood Culture - Final Blood - Venous - Problem List (1) Hypertension SNOMED Code(s): 66993381 ICD Code: I10 - ESSENTIAL (PRIMARY) HYPERTENSION Status: Acute Current Visit: Yes (2) Headache SNOMED Code(s): 32922006 ICD Code: R51 - HEADACHE Status: Acute Current Visit: Yes (3) Neck pain SNOMED Code(s): 27529565 ICD Code: M54.2 - CERVICALGIA Status: Acute Current Visit: Yes (4) Cervical radiculopathy SNOMED Code(s): 60864115 ICD Code: M54.12 - RADICULOPATHY, CERVICAL REGION Status: Acute Current Visit: No (5) Obstructive sleep apnea syndrome SNOMED Code(s): 96383448 ICD Code: G47.33 - OBSTRUCTIVE SLEEP APNEA (ADULT) (PEDIATRIC) Status: Chronic Priority: Medium Current Visit: No (6) CAD (coronary atherosclerotic disease) SNOMED Code(s): 574024019 ICD Code: I25.10 - ATHSCL HEART DISEASE OF [place] CORONARY ARTERY W/O ANG PCTRS Status: Acute Current Visit: Yes (7) History of percutaneous coronary intervention SNOMED Code(s): 304967684 ICD Code: Z98.890 - OTHER SPECIFIED POSTPROCEDURAL STATES Status: Acute Current Visit: Yes (8) CKD (chronic kidney disease) SNOMED Code(s): 759088400 ICD Code: N18.9 - CHRONIC KIDNEY DISEASE, UNSPECIFIED Status: Acute Current Visit: Yes Problem List Initiated/Reviewed/Updated: Yes Orders Last 24hrs: Active Orders 24 hr Category Date Time Status Patient Status [ADT] Routine ADT 05/15/18 22:03 Active Activity as Tolerated [RC] .Routine Care 05/15/18 23:17 Active Cardiac Monitoring [RC] . DIRECTED Care 05/15/18 16:16 Active Oxygen Therapy Adult [Oxygen Therapy] [RC] ASDIRECTED Care 05/15/18 23:16 Active 2 Gram Sodium Diet [DIET] Diet 05/16/18 Breakfast Active Chest 1V Frontal [CR] Stat Exams 05/15/18 16:07 Taken Head wo Cont [CT] Stat Exams 05/15/18 16:07 Taken CULTURE BLOOD [BC] Stat Lab 05/15/18 16:40 Results CULTURE BLOOD [BC] Stat Lab 05/15/18 17:09 Received RESPIRATORY PANEL Stat Lab 05/15/18 19:22 Ordered UA W/MICROSCOPIC [URIN] Stat Lab 05/15/18 22:00 Ordered [place] [place] [facility] LAB [REF] Stat Lab 05/15/18 17:04 Received Apixaban [Eliquis] Med 05/16/18 09:00 Active 2.5 mg PO BID Gabapentin [Neurontin] Med 05/16/18 09:00 Active 300 mg PO TID HYDROmorphone [Dilaudid] Med 05/15/18 23:04 Active 0.5 mg IVPUSH Q4H PRN Sodium Chloride 0.9% [Saline Flush] Med 05/15/18 16:07 Active 10 ml FLUSH ASDIRECTED PRN methylPREDNISolone Sod Succ [Solu-MEDROL] Med 05/16/18 01:00 Active 125 mg IVPUSH Q6H Blood Culture x2 Reflex Set [OM.PC] Stat Oth 05/15/18 16:10 Ordered CPAP [RESPCARE] Routine Oth 05/15/18 23:07 Active Peripheral IV Insertion Adult [OM.PC] Routine Oth 05/15/18 16:06 Ordered Code Status [Resuscitation Status] Routine Resus Stat 05/15/18 22:46 Ordered Medication Orders Apixaban (Eliquis) 2.5 mg PO BID [facility] Gabapentin (Neurontin) 300 mg PO TID [facility] Hydromorphone HCl (Dilaudid) 0.5 mg IVPUSH Q4H PRN PRN Reason: Pain Methylprednisolone Sodium Succinate (Solu-Medrol) 125 mg IVPUSH Q6H [facility] Last Admin: 05/16/18 06:30 Dose: 125 mg Admin: 05/16/18 00:20 Dose: 125 mg Sodium Chloride (Saline Flush) 10 ml FLUSH ASDIRECTED PRN PRN Reason: Keep Vein Open Last Admin: 05/15/18 16:21 Dose: 10 ml Assessment/Plan Comment:: Impression: Acute neck pain Headache CHRISTIAN Anxiety/depression Chronic CAD/PCI HTN HLD CKD Morbid obesity, BMI 57.9 Plan: NSAID IV STEROID NEURONTIN TRAMADOL Home meds Daily Labs Consult PT/OT/CM
[2018-05-16] MEDS ORDERED: Apixaban 5 MG Tab PO SCH (11:30)
[2018-05-16] MEDS ORDERED: Ketorolac 30 MG/ML SDV IVPUSH ONE (12:07)
[2018-05-16] MEDS: Apixaban 5 MG Tab PO SCH ×2 (12:24→20:39)
[2018-05-16] MEDS: Gabapentin 300 MG Cap PO SCH ×3 (12:24→20:39)
[2018-05-16] MEDS: Temazepam 7.5 MG Cap PO PRN (20:39)
[2018-05-16] MEDS: Ketorolac 15 MG/ML SDV IVPUSH SCH (20:40)
[2018-05-16] MEDS ORDERED: Non-Formulary Medication 1 Each (Losartan 25 MG) PO SCH (21:00)
[2018-05-17] MEDS: methylPREDNISolone Sodium Succinate 125 MG/2 ML SDV IVPUSH SCH ×4 (00:13→19:19)
[2018-05-17] MEDS: Ketorolac 15 MG/ML SDV IVPUSH SCH ×4 (02:49→20:26)
[2018-05-17] MEDS: Apixaban 5 MG Tab PO SCH ×2 (08:44→20:26)
[2018-05-17] MEDS: Gabapentin 300 MG Cap PO SCH ×3 (08:44→20:26)
[2018-05-17] MEDS ORDERED: Non-Formulary Medication 1 Each (Calcium Carbonate [Calcium] 1,000 MG) PO SCH (09:00)
[2018-05-17] MEDS ORDERED: Non-Formulary Medication 1 Each (Atenolol [Atenolol] 50 MG) PO SCH (09:00)
--- NOTE | 2018-05-17 18:58 | PCM.PN ---
- General Info Date of Service: 05/17/18 Subjective Update: Complains of a headache, and also believes that new cervical pain was triggered by exposure to insect spary. Functional Status: Reports: Tolerating Diet, Ambulating - Review of Systems General: Reports: No Symptoms HEENT: Reports: Headaches Pulmonary: Reports: No Symptoms Cardiovascular: Reports: No Symptoms Gastrointestinal: Reports: No Symptoms Genitourinary: Reports: No Symptoms Musculoskeletal: Reports: No Symptoms Skin: Reports: No Symptoms Neurological: Reports: No Symptoms Psychiatric: Reports: No Symptoms - Patient Data Vitals - Most Recent: Last Vital Signs Temp 36.8 C 05/17/18 11:29 Pulse 69 05/17/18 16:22 Resp 20 05/17/18 11:29 BP 153/77 H 05/17/18 16:22 Pulse Ox 96 05/17/18 16:22 Weight - Most Recent: 158.417 kg I&O - Last 24 Hours: Intake & Output 05/17/18 05/17/18 05/17/18 06:59 14:59 22:59 Intake Total 1500 300 480 Output Total 400 Balance 1100 300 480 Lab Results Last 24 Hours: Laboratory Results - last 24 hr 05/17/18 05/17/18 05/17/18 Range/Units 03:00 06:20 06:20 WBC 11.90 H (3.98-10.04) K/mm3 RBC 4.08 (3.98-5.22) M/mm3 Hgb 12.5 (11.2-15.7) gm/L Hct 38.6 (34.1-44.9) % MCV 94.6 (79.4-94.8) fl MCH 30.6 (25.6-32.2) pg MCHC 32.4 (32.2-35.5) g/dl RDW Std Deviation 45.7 (36.4-46.3) fL Plt Count 232 (182-369) K/mm3 MPV 10.0 (9.4-12.3) fl Neut % (Auto) 93.6 H (34.0-71.1) % Lymph % (Auto) 4.9 L (19.3-51.7) % [place] % (Auto) 1.2 L (4.7-12.5) % Eos % (Auto) 0 L (0.7-5.8) Baso % (Auto) 0.0 L (0.1-1.2) % Neut # (Auto) 11.15 H (1.56-6.13) K/mm3 Lymph # (Auto) 0.58 L (1.18-3.74) K/mm3 [place] # (Auto) 0.14 L (0.24-0.36) K/mm3 Eos # (Auto) 0.00 L (0.04-0.36) K/mm3 Baso # (Auto) 0.00 L (0.01-0.08) K/mm3 Manual Slide Review Normal smear Sodium 143 (136-145) mEq/L Potassium 4.6 (3.5-5.1) mEq/L Chloride 108 H (98-107) mEq/L Carbon Dioxide 24 (21-32) mEq/L Anion Gap 15.6 H (5-15) BUN 33 H (7-18) mg/dL Creatinine 1.3 H (0.55-1.02) mg/dL Est Cr Clr Drug Dosing 31.06 mL/min Estimated GFR (MDRD) 39 (>60) mL/min BUN/Creatinine Ratio 25.4 H (14-18) Glucose 164 H (83-115) mg/dL Calcium 9.1 (8.5-10.1) mg/dL Magnesium 2.1 (1.8-2.4) mg/dl C-Reactive Protein 4.9 H* (<1.0) mg/dL Urine Color Yellow (Yellow) Urine Appearance Slt cloudy H (Clear) Urine pH 6.0 (5.0-8.0) Ur Specific [place] 1.025 (1.005-1.030) Urine Protein Negative (Negative) Urine Glucose (UA) Negative (Negative) Urine Ketones Negative (Negative) Urine Occult Blood Negative (Negative) Urine Nitrite Negative (Negative) Urine Bilirubin Negative (Negative) Urine Urobilinogen 0.2 (0.2-1.0) Ur Leukocyte Esterase Negative (Negative) Urine RBC 0-5 (0-5) /hpf Urine WBC 0-5 (0-5) /hpf Ur Epithelial Cells 5-10 H (0-5) /hpf Urine Bacteria Many H (FEW) /hpf Urine Mucus Not seen (FEW) /hpf Amilcar Results Last 24 Hours: Microbiology 08/18/18 17:09 Aerobic Blood Culture - Preliminary Blood - Venous - Lab Draw NO GROWTH AFTER 2 DAYS Anaerobic Blood Culture - Preliminary NO GROWTH AFTER 2 DAYS 05/15/18 16:40 Aerobic Blood Culture - Preliminary Blood - Venous NO GROWTH AFTER 2 DAYS Anaerobic Blood Culture - Final Med Orders - Current: Current Medications Allopurinol (Zyloprim) 300 mg PO DAILY [facility] Apixaban (Eliquis) 2.5 mg PO BID [facility] Last Admin: 05/17/18 08:44 Dose: 2.5 mg Furosemide (Lasix) 40 mg PO DAILY [facility] Gabapentin (Neurontin) 300 mg PO TID [facility] Last Admin: 05/17/18 16:15 Dose: 300 mg Hydromorphone HCl (Dilaudid) 0.5 mg IVPUSH Q4H PRN PRN Reason: Pain Ketorolac Tromethamine (Toradol) 15 mg IVPUSH Q6H [facility] Stop: 05/21/18 20:01 Last Admin: 05/17/18 13:06 Dose: 15 mg Methylprednisolone Sodium Succinate (Solu-Medrol) 125 mg IVPUSH Q6H [facility] Last Admin: 05/17/18 13:07 Dose: 125 mg Metoprolol Tartrate (Lopressor) 12.5 mg PO BID [facility] Non-Formulary Medication (Atenolol [Atenolol]) 50 mg PO DAILY [facility] Non-Formulary Medication (Atorvastatin) 40 mg PO BEDTIME [facility] Non-Formulary Medication (Calcium Carbonate [Calcium]) 1,000 mg PO DAILY [facility] Non-Formulary Medication (Losartan) 25 mg PO BID [facility] Pantoprazole Sodium (Protonix) 40 mg PO DAILY [facility] Sodium Chloride (Saline Flush) 10 ml FLUSH ASDIRECTED PRN PRN Reason: Keep Vein Open Last Admin: 05/15/18 16:21 Dose: 10 ml Temazepam (Restoril) 7.5 mg PO BEDTIME PRN PRN Reason: Insomnia Last Admin: 05/16/18 20:39 Dose: 7.5 mg Discontinued Medications Gabapentin (Neurontin) 300 mg PO ONETIME ONE Stop: 05/15/18 21:24 Last Admin: 05/15/18 21:50 Dose: 300 mg Hydromorphone HCl (Dilaudid) 0.5 mg IVPUSH ONETIME ONE Stop: 05/15/18 16:08 Last Admin: 05/15/18 16:20 Dose: 0.5 mg Hydromorphone HCl (Dilaudid) 0.5 mg IVPUSH ONETIME ONE Stop: 05/15/18 18:08 Last Admin: 05/15/18 18:24 Dose: 0.5 mg Sodium Chloride (Normal Saline) 1,000 mls @ 150 mls/hr IV ONETIME ONE Stop: 05/15/18 23:31 Last Admin: 05/15/18 17:12 Dose: 150 mls/hr Ketorolac Tromethamine (Toradol) 30 mg IM ONETIME ONE Stop: 05/15/18 21:24 Last Admin: 05/15/18 21:50 Dose: 30 mg Ketorolac Tromethamine (Toradol) 30 mg IVPUSH STAT ONE Stop: 05/16/18 12:08 Last Admin: 05/16/18 12:22 Dose: 30 mg Methylprednisolone Sodium Succinate (Solu-Medrol) 125 mg IVPUSH ONETIME ONE Stop: 05/15/18 19:17 Last Admin: 05/15/18 19:32 Dose: 125 mg Ondansetron HCl (Zofran) 4 mg IVPUSH ONETIME ONE Stop: 05/15/18 16:08 Last Admin: 05/15/18 16:21 Dose: 4 mg - Exam Quality Assessment: DVT Prophylaxis General: Alert, Oriented, Cooperative, No Acute Distress HEENT: Pupils Equal, Pupils Reactive, EOMI Neck: Supple, Trachea Midline, No JVD Lungs: Normal Respiratory Effort Cardiovascular: Regular Rate, Regular Rhythm GI/Abdominal Exam: Normal Bowel Sounds, Soft, Non-Tender, No Organomegaly, No Distention (Female) Exam: Deferred Back Exam: Normal Inspection Extremities: Normal Inspection, Normal Capillary Refill Skin: Warm Neurological: No New Focal Deficit Psy/Mental Status: Alert - Problem List & Annotations (1) Hypertension SNOMED Code(s): 86182098 Code(s): I10 - ESSENTIAL (PRIMARY) HYPERTENSION Status: Acute Current Visit: Yes (2) Headache SNOMED Code(s): 53357987 Code(s): R51 - HEADACHE Status: Acute Current Visit: Yes (3) Neck pain SNOMED Code(s): 90828205 Code(s): M54.2 - CERVICALGIA Status: Acute Current Visit: Yes (4) Cervical radiculopathy SNOMED Code(s): 13385805 Code(s): M54.12 - RADICULOPATHY, CERVICAL REGION Status: Acute Current Visit: No (5) Obstructive sleep apnea syndrome SNOMED Code(s): 34028535 Code(s): G47.33 - OBSTRUCTIVE SLEEP APNEA (ADULT) (PEDIATRIC) Status: Chronic Priority: Medium Current Visit: No (6) CAD (coronary atherosclerotic disease) SNOMED Code(s): 091663312 Code(s): I25.10 - ATHSCL HEART DISEASE OF [place] CORONARY ARTERY W/O ANG PCTRS Status: Acute Current Visit: Yes (7) History of percutaneous coronary intervention SNOMED Code(s): 231082620 Code(s): Z98.890 - OTHER SPECIFIED POSTPROCEDURAL STATES Status: Acute Current Visit: Yes (8) CKD (chronic kidney disease) SNOMED Code(s): 594063417 Code(s): N18.9 - CHRONIC KIDNEY DISEASE, UNSPECIFIED Status: Acute Current Visit: Yes - Problem List Review Problem List Initiated/Reviewed/Updated: Yes - My Orders Last 24 Hours: My Active Orders 05/16/18 20:00 Ketorolac [Toradol] 15 mg IVPUSH Q6H 05/16/18 20:09 Temazepam [Restoril] 7.5 mg PO BEDTIME PRN 05/16/18 21:00 Losartan 25 mg PO BID Metoprolol Tartrate [Lopressor] 12.5 mg PO BID atorvaSTATin 40 mg PO BEDTIME 05/17/18 09:00 Consult to Occupational Therapy [OT Evaluation and Treatment] [CONS] Routine Consult to Physical Therapy [PT Evaluation and Treatment] [CONS] Routine Allopurinol [Zyloprim] 300 mg PO DAILY Atenolol [Atenolol] 50 mg PO DAILY Calcium Carbonate [Calcium] 1,000 mg PO DAILY Furosemide [Lasix] 40 mg PO DAILY 05/17/18 10:00 Consult to Case Management [CONS] Routine 05/18/18 05:00 BMP [BASIC METABOLIC PANEL,BMP] [CHEM] DAILY CBC WITH AUTO DIFF [HEME] DAILY CRP [C-REACTIVE PROTEIN] [CHEM] DAILY MAGNESIUM [CHEM] DAILY 05/19/18 05:00 BMP [BASIC METABOLIC PANEL,BMP] [CHEM] DAILY CBC WITH AUTO DIFF [HEME] DAILY 05/20/18 05:00 BMP [BASIC METABOLIC PANEL,BMP] [CHEM] DAILY CBC WITH AUTO DIFF [HEME] DAILY - Plan Plan:: Impression: Acute neck pain Headache CHRISTIAN Anxiety/depression Chronic CAD/PCI HTN HLD CKD Morbid obesity, BMI 57.9 Plan: NSAID IV STEROID NEURONTIN TRAMADOL Home meds Daily Labs Consult PT/OT/CM
[2018-05-17] MEDS: Temazepam 7.5 MG Cap PO PRN (20:26)
[2018-05-17] MEDS ORDERED: Rosuvastatin 10 MG Tab PO SCH (21:00)
[2018-05-17] MEDS ORDERED: HYDROmorphone 0.5 MG/0.5 ML Syringe IVPUSH PRN (22:04)
[2018-05-17] MEDS: Pantoprazole 40 MG Tab.CR PO SCH (22:30)
[2018-05-17] MEDS: Allopurinol 100 MG Tab PO SCH (22:52)
[2018-05-18] MEDS: Ketorolac 15 MG/ML SDV IVPUSH SCH ×3 (01:23→13:34)
[2018-05-18] MEDS: methylPREDNISolone Sodium Succinate 125 MG/2 ML SDV IVPUSH SCH ×3 (01:23→13:37)
[2018-05-18] MEDS: Gabapentin 300 MG Cap PO SCH (08:07)
[2018-05-18] MEDS: Allopurinol 100 MG Tab PO SCH (08:07)
[2018-05-18] MEDS: Pantoprazole 40 MG Tab.CR PO SCH (08:08)
[2018-05-18] MEDS: Apixaban 5 MG Tab PO SCH (08:08)
[2018-05-18] MEDS: Furosemide 20 MG Tab PO SCH (08:08)
[2018-05-18 12:00] VITALS: BP 154/87
--- NOTE | 2018-05-18 12:16 | PCM.DCSUM1 ---
Discharge Summary - Hospital Course Free Text/Narrative:: 82 year old female with multiple co-morbidities presented with moderate to severe neck and , additionally complained of a headache (frontal). She was treated with Solumedrol, Toradol and Neurontin with a good result. The patient was also seen by PT/OT who signed off. She was admitted as an observation after failed OP treatment. The patient will call her PCP for a follow up DC appointment. She has had an MRI which documented severe changes in the cervical region including but not limited to posterior bulging of multiple discs. Neurosurgery scheduling will be done by PCP, she currently has no neuro deficits. The patient believed that her pain was precipitated by insect spray, however this is not true. She had been performing garden chores with lifting plants, pots, pulling weeds and watering. This injury was acute on chronic and is not from pesticide exposure. Please note that poison control was called regarding her exposure, the products mentioned with her physical signs and symptoms were inconsistent with the ingredients of the products. HPI Initial Comments: 82 year old female with multiple medical problems recently experienced moderate- severe neck pain, had a MRI of the cervical region which is abnormal. It showed multiple levels of diffuse disc space narrowing, diffuse posterior disc bulging and neural foraminal stenosis. She was recently started on a narcotic without relief, and presents to the ED. Diagnosis: Stroke: No - Discharge Data Discharge Date: 05/18/18 Discharge Disposition: Home, Self-Care 01 Condition: Good - Discharge Diagnosis/Problem(s) (1) Hypertension SNOMED Code(s): 58046598 ICD Code: I10 - ESSENTIAL (PRIMARY) HYPERTENSION Status: Chronic Current Visit: Yes (2) Headache SNOMED Code(s): 53525802 ICD Code: R51 - HEADACHE Status: Acute Current Visit: Yes (3) Neck pain SNOMED Code(s): 07366917 ICD Code: M54.2 - CERVICALGIA Status: Acute Current Visit: Yes (4) Cervical radiculopathy SNOMED Code(s): 35658155 ICD Code: M54.12 - RADICULOPATHY, CERVICAL REGION Status: Acute Current Visit: No (5) Obstructive sleep apnea syndrome SNOMED Code(s): 65001033 ICD Code: G47.33 - OBSTRUCTIVE SLEEP APNEA (ADULT) (PEDIATRIC) Status: Chronic Priority: Medium Current Visit: No (6) CAD (coronary atherosclerotic disease) SNOMED Code(s): 101015950 ICD Code: I25.10 - ATHSCL HEART DISEASE OF [place] CORONARY ARTERY W/O ANG PCTRS Status: Chronic Current Visit: Yes (7) History of percutaneous coronary intervention SNOMED Code(s): 876142929 ICD Code: Z98.890 - OTHER SPECIFIED POSTPROCEDURAL STATES Status: Chronic Current Visit: Yes (8) CKD (chronic kidney disease) SNOMED Code(s): 057301108 ICD Code: N18.9 - CHRONIC KIDNEY DISEASE, UNSPECIFIED Status: Chronic Current Visit: Yes - Patient Summary/Data Consults: Consultations 05/17/18 09:00 Consult to Occupational Therapy [OT Evaluation and Treatment] [CONS] Routine Consult to Physical Therapy [PT Evaluation and Treatment] [CONS] Routine 05/17/18 10:00 Consult to Case Management [CONS] Routine - Patient Instructions Diet: Usual Diet as Tolerated Activity: As Tolerated Driving: May Drive Today Showering/Bathing: May Shower Notify Provider of: Fever, Increased Pain, Nausea and/or Vomiting - Discharge Plan *PRESCRIPTION DRUG MONITORING PROGRAM REVIEWED*: No *COPY OF PRESCRIPTION DRUG MONITORING REPORT IN PATIENT NATALIE: No Prescriptions/Med Rec: Apixaban [Eliquis] 2.5 mg PO BID #60 tablet Gabapentin [Neurontin] 300 mg PO TID #90 capsule Home Medications: Home Meds Furosemide [Lasix] 20 mg PO DAILY 02/18/14 [History] Allopurinol 300 mg PO DAILY 04/03/16 [History] Metoprolol Tartrate 12.5 mg PO BID 04/03/16 [History] Pantoprazole Sodium [Protonix] 40 mg PO DAILY 04/03/16 [History] Atenolol 50 mg PO DAILY 05/17/18 [History] Baclofen 10 mg PO TID 05/17/18 [History] Calcium Carbonate/Vitamin D3 [Calcium 250+D] 250 mg PO DAILY 05/17/18 [History] Cholecalciferol (Vitamin D3) [Vitamin D] 5,000 units PO DAILY 05/17/18 [History] Clopidogrel [Plavix] 75 mg PO DAILY 05/17/18 [History] Folic Acid 400 mcg PO DAILY 05/17/18 [History] Lisinopril 2.5 mg PO DAILY 05/17/18 [History] Rosuvastatin [Crestor] 10 mg PO DAILY 05/17/18 [History] Topiramate [Topamax] 25 mg PO BID 05/17/18 [History] oxyCODONE 1 - 2 mg PO Q6H 05/17/18 [History] traMADol HCl [Tramadol HCl] 100 mg PO Q8H PRN 05/17/18 [History] Apixaban [Eliquis] 2.5 mg PO BID #60 tablet 05/18/18 [Rx] Gabapentin [Neurontin] 300 mg PO TID #90 capsule 05/18/18 [Rx] Patient Handouts: Radicular Pain, Neuropathic Pain Forms: ED Department Discharge Referrals: Gilberto Roberts MD [Primary Care Provider] - 05/21/18 10:45 am (Please follow up with Dr. Mckeon on Thursday at 1045.) - Discharge Summary/Plan Comment DC Time >30 min.: No Discharge Summary/Plan Comment: Impression: Acute neck pain-->resolved Headache-->resolved CHRISTIAN-->CPAP Pesticide exposure-->noncontributory Anxiety/depression-->chronic, no change in meds Chronic CAD/PCI HTN HLD CKD Morbid obesity, BMI 57.9 Plan: NEURONTIN TRAMADOL Continue home meds Eliquis dose BID not daily Follow up with PCP on 05/21/18 Neurology or Neurosurg per PCP--->TBA - General Info Date of Service: 05/15/18 Functional Status: Reports: Pain Controlled - Review of Systems General: Reports: No Symptoms HEENT: Reports: No Symptoms Pulmonary: Reports: No Symptoms Cardiovascular: Reports: No Symptoms Gastrointestinal: Reports: No Symptoms Genitourinary: Reports: No Symptoms Musculoskeletal: Reports: No Symptoms Skin: Reports: No Symptoms Neurological: Reports: No Symptoms Psychiatric: Reports: No Symptoms - Patient Data Vitals - Most Recent: Last Vital Signs Temp 36.7 C 05/18/18 11:36 Pulse 57 L 05/18/18 11:36 Resp 24 H 05/18/18 11:36 BP 154/87 H 05/18/18 11:36 Pulse Ox 99 05/18/18 11:36 Weight - Most Recent: 160.254 kg I&O - Last 24 hours: Intake & Output 05/17/18 05/18/18 05/18/18 22:59 06:59 14:59 Intake Total 2080 800 300 Output Total 1000 Balance 1080 800 300 Lab Results - Last 24 hrs: Laboratory Results - last 24 hr 05/17/18 05/18/18 05/18/18 Range/Units 03:00 06:25 06:25 WBC 13.40 H (3.98-10.04) K/mm3 RBC 3.98 (3.98-5.22) M/mm3 Hgb 12.3 (11.2-15.7) gm/L Hct 37.5 (34.1-44.9) % MCV 94.2 (79.4-94.8) fl MCH 30.9 (25.6-32.2) pg MCHC 32.8 (32.2-35.5) g/dl RDW Std Deviation 45.5 (36.4-46.3) fL Plt Count 236 (182-369) K/mm3 MPV 9.8 (9.4-12.3) fl Neut % (Auto) 92.8 H (34.0-71.1) % Lymph % (Auto) 5.2 L (19.3-51.7) % [place] % (Auto) 1.5 L (4.7-12.5) % Eos % (Auto) 0 L (0.7-5.8) Baso % (Auto) 0.1 (0.1-1.2) % Neut # (Auto) 12.43 H (1.56-6.13) K/mm3 Lymph # (Auto) 0.70 L (1.18-3.74) K/mm3 [place] # (Auto) 0.20 L (0.24-0.36) K/mm3 Eos # (Auto) 0.00 L (0.04-0.36) K/mm3 Baso # (Auto) 0.01 (0.01-0.08) K/mm3 Manual Slide Review Abnormal smear Sodium 139 (136-145) mEq/L Potassium 4.6 (3.5-5.1) mEq/L Chloride 106 (98-107) mEq/L Carbon Dioxide 23 (21-32) mEq/L Anion Gap 14.6 (5-15) BUN 43 H (7-18) mg/dL Creatinine 1.3 H (0.55-1.02) mg/dL Est Cr Clr Drug Dosing 31.06 mL/min Estimated GFR (MDRD) 39 (>60) mL/min BUN/Creatinine Ratio 33.1 H (14-18) Glucose 151 H (83-115) mg/dL Calcium 9.0 (8.5-10.1) mg/dL Magnesium 2.2 (1.8-2.4) mg/dl C-Reactive Protein 2.1 H* (<1.0) mg/dL Adenovirus (PCR) Not detected (Not Detected) B. pertussis DNA (PCR) Not detected (Not Detected) B.parapertussis DNA PCR Not detected (Not Detected) C. pneumoniae DNA (PCR) Not detected (Not Detected) Coronavirus (PCR) Not detected (Not Detected) Human Metapneumovir PCR Not detected (Not Detected) Influenza A (RT-PCR) Not detected (Not Detected) Influenza B (RT-PCR) Not detected (Not Detected) M. pneumoniae (PCR) Not detected (Not Detected) Parainfluen 1,2,3,4 PCR Not detected (Not Detected) RSV (PCR) Not detected (Not Detected) Entero/Rhino (PCR) Not detected (Not Detected) [place] Results - Last 24 hrs: Microbiology 05/15/18 17:09 Aerobic Blood Culture - Preliminary Blood - Venous - Lab Draw NO GROWTH AFTER 2 DAYS Anaerobic Blood Culture - Preliminary NO GROWTH AFTER 2 DAYS 05/15/18 16:40 Aerobic Blood Culture - Preliminary Blood - Venous NO GROWTH AFTER 2 DAYS Anaerobic Blood Culture - Final Med Orders - Current: Current Medications Allopurinol (Zyloprim) 300 mg PO DAILY [facility] Last Admin: 05/18/18 08:07 Dose: 300 mg Apixaban (Eliquis) 2.5 mg PO BID [facility] Last Admin: 05/18/18 08:08 Dose: 2.5 mg Furosemide (Lasix) 40 mg PO DAILY [facility] Gabapentin (Neurontin) 300 mg PO TID [facility] Last Admin: 05/18/18 08:07 Dose: 300 mg Hydromorphone HCl (Dilaudid) 0.5 mg IVPUSH Q4H PRN PRN Reason: Pain Ketorolac Tromethamine (Toradol) 15 mg IVPUSH Q6H [facility] Stop: 05/21/18 20:01 Last Admin: 05/18/18 08:11 Dose: 15 mg Methylprednisolone Sodium Succinate (Solu-Medrol) 125 mg IVPUSH Q6H [facility] Last Admin: 05/18/18 06:11 Dose: 125 mg Metoprolol Tartrate (Lopressor) 12.5 mg PO BID [facility] Last Admin: 05/18/18 08:09 Dose: 12.5 mg Non-Formulary Medication (Calcium Carbonate [Calcium]) 1,000 mg PO DAILY [facility] Pantoprazole Sodium (Protonix) 40 mg PO DAILY [facility] Last Admin: 05/18/18 08:08 Dose: 40 mg Rosuvastatin Calcium (Crestor) 10 mg PO BEDTIME [facility] Last Admin: 05/17/18 22:30 Dose: 10 mg Sodium Chloride (Saline Flush) 10 ml FLUSH ASDIRECTED PRN PRN Reason: Keep Vein Open Last Admin: 05/15/18 16:21 Dose: 10 ml Temazepam (Restoril) 7.5 mg PO BEDTIME PRN PRN Reason: Insomnia Last Admin: 05/17/18 20:26 Dose: 7.5 mg Discontinued Medications Gabapentin (Neurontin) 300 mg PO ONETIME ONE Stop: 05/15/18 21:24 Last Admin: 05/15/18 21:50 Dose: 300 mg Hydromorphone HCl (Dilaudid) 0.5 mg IVPUSH ONETIME ONE Stop: 05/15/18 16:08 Last Admin: 05/15/18 16:20 Dose: 0.5 mg Hydromorphone HCl (Dilaudid) 0.5 mg IVPUSH ONETIME ONE Stop: 05/15/18 18:08 Last Admin: 05/15/18 18:24 Dose: 0.5 mg Hydromorphone HCl (Dilaudid) 0.5 mg IVPUSH Q4H PRN PRN Reason: Pain Sodium Chloride (Normal Saline) 1,000 mls @ 150 mls/hr IV ONETIME ONE Stop: 05/15/18 23:31 Last Admin: 05/15/18 17:12 Dose: 150 mls/hr Ketorolac Tromethamine (Toradol) 30 mg IM ONETIME ONE Stop: 05/15/18 21:24 Last Admin: 05/15/18 21:50 Dose: 30 mg Ketorolac Tromethamine (Toradol) 30 mg IVPUSH STAT ONE Stop: 05/16/18 12:08 Last Admin: 05/16/18 12:22 Dose: 30 mg Methylprednisolone Sodium Succinate (Solu-Medrol) 125 mg IVPUSH ONETIME ONE Stop: 05/15/18 19:17 Last Admin: 05/15/18 19:32 Dose: 125 mg Non-Formulary Medication (Atenolol [Atenolol]) 50 mg PO DAILY [facility] Non-Formulary Medication (Losartan) 25 mg PO BID [facility] Ondansetron HCl (Zofran) 4 mg IVPUSH ONETIME ONE Stop: 05/15/18 16:08 Last Admin: 05/15/18 16:21 Dose: 4 mg - Exam Quality Assessment: Reports: DVT Prophylaxis General: Reports: Alert, Oriented, Cooperative HEENT: Reports: Pupils Equal, Pupils Reactive, EOMI Neck: Reports: Trachea Midline, No JVD Lungs: Reports: Normal Respiratory Effort Cardiovascular: Reports: Regular Rate, Regular Rhythm GI/Abdominal Exam: Normal Bowel Sounds, Soft, Non-Tender, No Organomegaly (Female) Exam: Deferred Rectal (Female) Exam: Deferred Back Exam: Reports: Normal Inspection Extremities: Normal Inspection, No Pedal Edema, Normal Capillary Refill Skin: Reports: Warm Neurological: Reports: No New Focal Deficit Psy/Mental Status: Reports: Alert, Normal Affect, Normal Mood
--- NOTE | 2018-05-19 11:04 | CT ---
Head CT Technique: Multiple axial sections through the brain were obtained. Intravenous contrast was not utilized. Comparison: Prior head CT study of 01/06/12. Findings: Sulci over the convexities are mildly prominent within both frontal regions and anterior parietal areas. Findings are compatible with cortical atrophy. Ventricles are minimally prominent. No abnormal parenchymal densities are seen. No evidence of intracranial hemorrhage. No midline shift or mass effect is seen. Visualized sinuses are clear. No acute calvarial abnormality is seen. Impression: 1. Asymmetric atrophy within both frontal and parietal regions. 2. No acute intracranial abnormality is appreciated. Diagnostic code #2 I agree with preliminary report from [facility], finalized at 05/15/18, 6:03 PM Central Time
--- NOTE | 2018-05-19 11:04 | CR ---
Chest: Portable view of the chest was obtained. Comparison: Prior chest x-ray of 12/09/17. Heart is slightly enlarged. Tortuous thoracic aorta is seen. 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 Minimal atelectasis is noted within the left mid to lower lung. Lungs otherwise are clear. 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 Impression: 1. Incidental findings. Nothing acute is appreciated. Diagnostic code #2
== END 2018-05-18 14:03 | disposition home or self-care (01) ==
LOC: JD.ED 13:57 → JD.MS 22:03
PROVIDERS: ADMIT Internal Medicine Cardiovascular Disease; ATTEND Internal Medicine Cardiovascular Disease
DX: M54.2 Cervicalgia (principal); R51 Headache; M54.12 Radiculopathy, cervical region; G47.33 Obstructive sleep apnea (adult) (pediatric); I25.10 Atherosclerotic heart disease of native coronary artery without angina pectoris; I12.9 Hypertensive chronic kidney disease with stage 1 through stage 4 chronic kidney disease, or unspecified chronic kidney disease; N18.9 Chronic kidney disease, unspecified; F41.8 Other specified anxiety disorders; E78.5 Hyperlipidemia, unspecified; I25.2 Old myocardial infarction; M10.9 Gout, unspecified; M19.90 Unspecified osteoarthritis, unspecified site; M81.0 Age-related osteoporosis without current pathological fracture; E66.01 Morbid (severe) obesity due to excess calories; Z68.43 Body mass index [BMI] 50.0-59.9, adult; Z86.711 Personal history of pulmonary embolism; Z79.02 Long term (current) use of antithrombotics/antiplatelets; Z79.899 Other long term (current) drug therapy; Z88.0 Allergy status to penicillin; Z88.2 Allergy status to sulfonamides; Z88.5 Allergy status to narcotic agent; Z91.048 Other nonmedicinal substance allergy status; Z95.5 Presence of coronary angioplasty implant and graft; Z99.89 Dependence on other enabling machines and devices; Z98.890 Other specified postprocedural states
CPT/HCPCS: 36415; 70450; 71045; 80048; 80053; 81001; 83605; 83735; 84484; 85007; 85025; 85027; 86140; 86788; 87040; 87486; 87581; 87632; 87798; 93005; 96361; 96372; 96374; 96375; 96376; 97110; 97116; 97124; 97162; 97165; 97530; 99285; A9270; G0378; J1170; J1885; J2405; J2930; J7040; J7050; 93010

== ENCOUNTER 2020-11-03 18:39 | Emergency (ER) | payer MEDICARE, BC ==
[2020-11-03 18:50] VITALS: BP 131/74; PULSE 82
[2020-11-03] MEDS ORDERED: Sodium Chloride 0.9% 10 ML Syringe FLUSH PRN (19:03)
--- NOTE | 2020-11-03 19:22 | EDM.PDOC ---
ED HPI GENERAL MEDICAL PROBLEM - General Chief Complaint: General Stated Complaint: LOW OXYGEN HAS PREVIOUS HEART ISSUE Time Seen by Provider: 11/03/20 19:02 Source of Information: Reports: Patient, Family (daughter), RN Notes Reviewed History Limitations: Reports: No Limitations - History of Present Illness INITIAL COMMENTS - FREE TEXT/NARRATIVE: Patient is an 85-year-old female who presents to the ED for the evaluation of her generalized feelings of being unwell and low oxygen levels. Patient has been sick all week, she states that she just hurts all over, she does not have much of an appetite she still can smell and taste food however. Family member in the room notes that her O2 levels at home were low at around 84%, the patient was not overly short of breath, but has been having cold sweats but no documented fever. Patient has previous cardiac issues, and had stents placed a few years ago, family member became concerned, as the symptoms seem to line up with how she felt a few years ago when she had her heart trouble. Primary care provider is Dr. Mckeon, and she did have a acute care physical therapist in [place] however they think he may have left the practice. Again patient's been feeling ill for about a week, but denies any known sick contacts that she may have come into. Patient's also been complaining of some nasal congestion. Patient's vitals are as follows, pulse is 82 bpm, temperature is 97.0 F, respiratory rate of 20 breaths/min, blood pressure is 131/74, and her O2 sats are 86% on room air. Patient appears to be in no visible respiratory distress. - Related Data Allergies Allergy/AdvReac Type Severity Reaction Status Date / Time adhesive tape Allergy Rash Verified 11/03/20 18:51 azithromycin Allergy Edema Verified 11/03/20 18:51 hydrocodone Allergy Airway Verified 11/03/20 18:51 Tightness Latex, Natural Rubber Allergy Rash Verified 11/03/20 18:51 Penicillins Allergy Swelling Verified 11/03/20 18:51 Sulfa (Sulfonamide Allergy Other Verified 11/03/20 18:51 Antibiotics) Home Meds: Home Meds Furosemide [Lasix] 20 mg PO DAILY 02/18/14 [History] Metoprolol Tartrate 12.5 mg PO BID 04/03/16 [History] Pantoprazole Sodium [Protonix] 40 mg PO DAILY 04/03/16 [History] allopurinoL [Allopurinol] 300 mg PO DAILY 04/03/16 [History] Baclofen 10 mg PO TID 05/17/18 [History] Calcium Carbonate/Vitamin D3 [Calcium 250+D] 250 mg PO DAILY 05/17/18 [History] Cholecalciferol (Vitamin D3) [Vitamin D] 5,000 units PO DAILY 05/17/18 [History] Clopidogrel [Plavix] 75 mg PO DAILY 05/17/18 [History] Folic Acid 400 mcg PO DAILY 05/17/18 [History] Lisinopril 2.5 mg PO DAILY 05/17/18 [History] Rosuvastatin [Crestor] 10 mg PO DAILY 05/17/18 [History] Topiramate [Topamax] 25 mg PO BID 05/17/18 [History] atenoloL [Atenolol] 50 mg PO DAILY 05/17/18 [History] oxyCODONE 1 - 2 mg PO Q6H 05/17/18 [History] traMADol HCl [Tramadol HCl] 100 mg PO Q8H PRN 05/17/18 [History] Apixaban [Eliquis] 2.5 mg PO BID #60 tablet 05/18/18 [Rx] Gabapentin [Neurontin] 300 mg PO TID #90 capsule 05/18/18 [Rx] Ondansetron [Zofran ODT] 4 mg PO Q8H PRN #15 tab.dis 11/03/20 [Rx] Past Medical History HEENT History: Reports: Hard of Hearing, Other (See Below) Other HEENT History: wears bilateral hearing aides Cardiovascular History: Reports: Hypertension, GA, Stents Respiratory History: Reports: PE, Sleep Apnea Gastrointestinal History: Reports: Diverticulosis, PUD Genitourinary History: Reports: Chronic Renal Insuffiency, Urinary Incontinence DRILLER MULTIPLE SPINDLE History: Reports: Musculoskeletal History: Reports: Back Pain, Chronic, Fracture, Gout, Osteoarthritis, Osteoporosis Endocrine/Metabolic History: Reports: Obesity/BMI 30+ - Infectious Disease History Infectious Disease History: Reports: Influenza - Past Surgical History HEENT Surgical History: Reports: None Cardiovascular Surgical History: Reports: Coronary Artery Stent Other Cardiovascular Surgeries/Procedures: x 1 stent Respiratory Surgical History: Reports: None GI Surgical History: Reports: Appendectomy, Cholecystectomy, Colon, Colonoscopy, EGD Other GI Surgeries/Procedures: Stomoach Ulcer Female Surgical History: Reports: None Endocrine Surgical History: Reports: None Musculoskeletal Surgical History: Reports: Hip Replacement, Knee Replacement, Shoulder Replacement, Shoulder Surgery Social & Family History - Family History Family Medical History: No Pertinent Family History - Tobacco Use Tobacco Use Status *Q: Never Tobacco User Second Hand Smoke Exposure: No - Caffeine Use Caffeine Use: Reports: None Other Caffeine Use: 2-3 cups everyday - Recreational Drug Use Recreational Drug Use: No - Living Situation & Occupation Living situation: Reports: , Alone Occupation: Retired ED ROS GENERAL - Review of Systems Review Of Systems: Comprehensive ROS is negative, except as noted in HPI. ED EXAM, GENERAL - Physical Exam Exam: See Below Exam Limited By: No Limitations General Appearance: Alert, WD/WN, No Apparent Distress Respiratory/Chest: No Respiratory Distress, Lungs Clear, Normal Breath Sounds, No Accessory Muscle Use, Chest Non-Tender Cardiovascular: Normal Peripheral Pulses, Regular Rate, Rhythm, No Edema Peripheral Pulses: 2+: Radial (L), Radial (R) GI/Abdominal: Normal Bowel Sounds, Soft, Non-Tender, No Distention, No Mass Extremities: Normal Inspection, Normal Capillary Refill Neurological: Alert, Oriented, Normal Cognition, No Motor/Sensory Deficits Psychiatric: Normal Affect, Normal Mood Skin Exam: Warm, Dry, Intact, Normal Color, No Rash #1 Interpretation EKG Date: 11/03/20 Time: 18:57 Rhythm: NSR Rate (Beats/Min): 82 [place]: Normal P-Wave: Present QRS: Normal ST-T: Normal QT: Normal EKG Interpretation Comments: No obvious ischemia or acute ST changes noted, reviewed by myself and Dr. Tobin. Course - Vital Signs Last Recorded V/S: Last Vital Signs Temp 97 F 11/03/20 18:47 Pulse 82 11/03/20 18:47 Resp 20 11/03/20 18:47 BP 131/74 11/03/20 18:47 Pulse Ox 86 L 11/03/20 18:47 - Orders/Labs/Meds Orders: Active Orders 24 hr Category Date Time Status EKG 12 Lead [EKG Documentation Completion] [RC] ROUTINE Care 11/03/20 18:57 Active EKG Documentation Completion [RC] STAT Care 11/03/20 19:03 Ordered Peripheral IV Care [RC] . DIRECTED Care 11/03/20 19:04 Ordered Chest 1V Frontal [CR] Stat Exams 11/03/20 19:03 Ordered Sodium Chloride 0.9% [Saline Flush] Med 11/03/20 19:03 Ordered 10 ml FLUSH ASDIRECTED PRN Peripheral IV Insertion Adult [OM.PC] Routine Oth 11/03/20 19:04 Ordered Medication Orders Sodium Chloride (Saline Flush) 10 ml FLUSH ASDIRECTED PRN PRN Reason: Keep Vein Open Last Admin: 11/03/20 19:38 Dose: 10 ml Documented by: GUICHO Labs: Laboratory Tests 11/03/20 11/03/20 11/03/20 Range/Units 19:10 19:15 19:30 WBC (3.98-10.04) K/mm3 RBC (3.98-5.22) M/mm3 Hgb (11.2-15.7) gm/dl Hct (34.1-44.9) % MCV (79.4-94.8) fl MCH (25.6-32.2) pg MCHC (32.2-35.5) g/dl RDW Std Deviation (36.4-46.3) fL Plt Count (182-369) K/mm3 MPV (9.4-12.3) fl Neutrophils % (Manual) (40-60) % Band Neutrophils % (0-10) % Lymphocytes % (Manual) (20-40) % Atypical Lymphs % % Monocytes % (Manual) (2-10) % Eosinophils % (Manual) (0.7-5.8) % Basophils % (Manual) (0.1-1.2) Platelet Estimate RBC Morph Comment PT (9.7-12.0) SECONDS INR APTT (21.7-31.4) SECONDS D-Dimer, Quantitative (0.19-0.50) mg/L Puncture Site Lt radial ABG pH 7.38 (7.35-7.45) ABG pCO2 40.3 (35.0-45.0) mmHg ABG pO2 67.0 L (80.0-100.0) mmHg ABG HCO3 23.1 (22.0-26.0) meq/L ABG O2 Saturation 90.0 L (96.0-97.0) % ABG Base Excess -1.4 (-2-2.0) Dharmesh Test Positive A-a Gradient 33 mmHg O2 Delivery Device Room air FiO2 21.00 (21.00-100.00) % Sodium (136-145) mEq/L Potassium (3.5-5.1) mEq/L Chloride (98-107) mEq/L Carbon Dioxide (21-32) mEq/L Anion Gap (5-15) BUN (7-18) mg/dL Creatinine (0.55-1.02) mg/dL Est Cr Clr Drug Dosing mL/min Estimated GFR (MDRD) (>60) mL/min BUN/Creatinine Ratio (14-18) Glucose (83-115) mg/dL Lactic Acid (0.4-2.0) mmol/L Calcium (8.5-10.1) mg/dL Magnesium (1.8-2.4) mg/dl Ferritin (8-252) ng/ml Total Bilirubin (0.2-1.0) mg/dL AST (15-37) U/L ALT (14-59) U/L Alkaline Phosphatase (46-116) U/L Lactate Dehydrogenase (81-234) U/L Troponin I (0.00-0.056) ng/mL C-Reactive Protein 6.2 H* (<1.0) mg/dL NT-Pro-B Natriuret Pep (0-450) pg/mL Total Protein (6.4-8.2) g/dl Albumin (3.4-5.0) g/dl Globulin gm/dL Albumin/Globulin Ratio (1-2) Influenza Type A RNA Negative (NEGATIVE) Influenza Type B RNA Negative (NEGATIVE) SARS-CoV-2 RNA (PAVITHRA) Negative (NEGATIVE) 11/03/20 11/03/20 11/03/20 Range/Units 19:30 19:30 19:30 WBC 7.01 (3.98-10.04) K/mm3 RBC 4.66 (3.98-5.22) M/mm3 Hgb 13.5 (11.2-15.7) gm/dl Hct 42.7 (34.1-44.9) % MCV 91.6 (79.4-94.8) fl MCH 29.0 (25.6-32.2) pg MCHC 31.6 L (32.2-35.5) g/dl RDW Std Deviation 49.7 H (36.4-46.3) fL Plt Count 141 L D (182-369) K/mm3 MPV 9.6 (9.4-12.3) fl Neutrophils % (Manual) 41 (40-60) % Band Neutrophils % 0 (0-10) % Lymphocytes % (Manual) 53 H (20-40) % Atypical Lymphs % 0 % Monocytes % (Manual) 5 (2-10) % Eosinophils % (Manual) 1 (0.7-5.8) % Basophils % (Manual) 0 L (0.1-1.2) Platelet Estimate Adequate RBC Morph Comment Normal PT 11.1 (9.7-12.0) SECONDS INR 1.04 APTT 32.7 H (21.7-31.4) SECONDS D-Dimer, Quantitative 1.15 H (0.19-0.50) mg/L Puncture Site ABG pH (7.35-7.45) ABG pCO2 (35.0-45.0) mmHg ABG pO2 (80.0-100.0) mmHg ABG HCO3 (22.0-26.0) meq/L ABG O2 Saturation (96.0-97.0) % ABG Base Excess (-2-2.0) Dharmesh Test A-a Gradient mmHg O2 Delivery Device FiO2 (21.00-100.00) % Sodium 137 (136-145) mEq/L Potassium 3.7 (3.5-5.1) mEq/L Chloride 103 (98-107) mEq/L Carbon Dioxide 24 (21-32) mEq/L Anion Gap 13.7 (5-15) BUN 21 H (7-18) mg/dL Creatinine 1.4 H (0.55-1.02) mg/dL Est Cr Clr Drug Dosing 29.61 mL/min Estimated GFR (MDRD) 36 (>60) mL/min BUN/Creatinine Ratio 15.0 (14-18) Glucose 108 (83-115) mg/dL Lactic Acid (0.4-2.0) mmol/L Calcium 8.9 (8.5-10.1) mg/dL Magnesium 1.8 (1.8-2.4) mg/dl Ferritin (8-252) ng/ml Total Bilirubin 0.5 (0.2-1.0) mg/dL AST 56 H (15-37) U/L ALT 68 H (14-59) U/L Alkaline Phosphatase 90 (46-116) U/L Lactate Dehydrogenase 202 (81-234) U/L Troponin I < 0.017 (0.00-0.056) ng/mL C-Reactive Protein (<1.0) mg/dL NT-Pro-B Natriuret Pep (0-450) pg/mL Total Protein 6.9 (6.4-8.2) g/dl Albumin 3.1 L (3.4-5.0) g/dl Globulin 3.8 gm/dL Albumin/Globulin Ratio 0.8 L (1-2) Influenza Type A RNA (NEGATIVE) Influenza Type B RNA (NEGATIVE) SARS-CoV-2 RNA (PAVITHRA) (NEGATIVE) 11/03/20 11/03/20 11/03/20 Range/Units 19:30 19:30 19:30 WBC (3.98-10.04) K/mm3 RBC (3.98-5.22) M/mm3 Hgb (11.2-15.7) gm/dl Hct (34.1-44.9) % MCV (79.4-94.8) fl MCH (25.6-32.2) pg MCHC (32.2-35.5) g/dl RDW Std Deviation (36.4-46.3) fL Plt Count (182-369) K/mm3 MPV (9.4-12.3) fl Neutrophils % (Manual) (40-60) % Band Neutrophils % (0-10) % Lymphocytes % (Manual) (20-40) % Atypical Lymphs % % Monocytes % (Manual) (2-10) % Eosinophils % (Manual) (0.7-5.8) % Basophils % (Manual) (0.1-1.2) Platelet Estimate RBC Morph Comment PT (9.7-12.0) SECONDS INR APTT (21.7-31.4) SECONDS D-Dimer, Quantitative (0.19-0.50) mg/L Puncture Site ABG pH (7.35-7.45) ABG pCO2 (35.0-45.0) mmHg ABG pO2 (80.0-100.0) mmHg ABG HCO3 (22.0-26.0) meq/L ABG O2 Saturation (96.0-97.0) % ABG Base Excess (-2-2.0) Dharmesh Test A-a Gradient mmHg O2 Delivery Device FiO2 (21.00-100.00) % Sodium (136-145) mEq/L Potassium (3.5-5.1) mEq/L Chloride (98-107) mEq/L Carbon Dioxide (21-32) mEq/L Anion Gap (5-15) BUN (7-18) mg/dL Creatinine (0.55-1.02) mg/dL Est Cr Clr Drug Dosing mL/min Estimated GFR (MDRD) (>60) mL/min BUN/Creatinine Ratio (14-18) Glucose (83-115) mg/dL Lactic Acid 1.1 (0.4-2.0) mmol/L Calcium (8.5-10.1) mg/dL Magnesium (1.8-2.4) mg/dl Ferritin 118 (8-252) ng/ml Total Bilirubin (0.2-1.0) mg/dL AST (15-37) U/L ALT (14-59) U/L Alkaline Phosphatase (46-116) U/L Lactate Dehydrogenase (81-234) U/L Troponin I (0.00-0.056) ng/mL C-Reactive Protein (<1.0) mg/dL NT-Pro-B Natriuret Pep 1381 H (0-450) pg/mL Total Protein (6.4-8.2) g/dl Albumin (3.4-5.0) g/dl Globulin gm/dL Albumin/Globulin Ratio (1-2) Influenza Type A RNA (NEGATIVE) Influenza Type B RNA (NEGATIVE) SARS-CoV-2 RNA (PAVITHRA) (NEGATIVE) Meds: Medications Generic Name Dose Route Start Last Admin Trade Name Freq PRN Reason Stop Dose Admin Sodium Chloride 10 ml 11/03/20 19:03 11/03/20 19:38 Saline Flush FLUSH 10 ml ASDIRECTED PRN Administration Keep Vein Open - Re-Assessments/Exams Free Text/Narrative Re-Assessment/Exam: 11/03/20 19:21 Patient presents to the ED for evaluation of her feelings of being unwell and low oxygen levels, we will do a multitude of labs and evaluate her for COVID-19 at this time. EKG was performed and demonstrates normal sinus rhythm with no acute ST abnormalities. O2 sats were anywhere between 86 to 90% on the monitor when I was visiting with her initially. Again patient is in no visible respiratory distress. 11/03/20 20:11 The patient's chest x-ray has been performed, there does appear to be a left-si ded pleural effusion, labs have started to result, CBC is essentially unremarkable, blood gas demonstrates a PO2 of 67 on room air at this time. Other labs are still pending. 11/03/20 20:25 Labs have resulted, metabolic panel shows a creatinine is elevated at 1.4, GFR decreased at 36, CRP at 6.2, her BNP is elevated at 1381, suggestive of acute CHF exacerbation. D-dimer is elevated at 1.15 however with her kidney dysfunction, this could be accounted for, I did go over test results with Dr. Stein and he does clinically agree at this time. We will try to get the patient home with an increased Lasix dose, and watch her weight over the next few days and follow-up with her regular care provider sometime early this week for a reevaluation of her labs. Troponin was undetectably low, and her Covid screen was negative as well. Departure - Departure Time of Disposition: 20:35 Disposition: Home, Self-Care 01 Condition: Good Clinical Impression: Pleural effusion Acute exacerbation of congestive heart failure Qualifiers: Heart failure type: unspecified Qualified Code(s): I50.9 - Heart failure, unspecified - Discharge Information *PRESCRIPTION DRUG MONITORING PROGRAM REVIEWED*: No *COPY OF PRESCRIPTION DRUG MONITORING REPORT IN PATIENT NATALIE: No Instructions: Heart Failure, Self Care, [id number], Heart Failure Eating Plan Referrals: Gilberto Roebrts MD [Primary Care Provider] - Forms: ED Department Discharge Additional Instructions: You were evaluated in the ER today for your low oxygen levels, and feelings of just generally being unwell. You had a multitude of labs was done at today's visit, and everything is essentially normal however your marker for heart failure was a little bit elevated, indicating that you are retaining some fluid. You will need to take 2 tablets of your furosemide medication daily instead of just the one that you are taking. If you start feeling too dizzy or lightheaded with 2 tablets, you may cut one in half and take only 1-1/2 tablet until you follow-up with Dr. Mckeon. Recommend you call his office on Thursday and obtain an appointment for close ER follow-up to have your labs redrawn and to make sure that your symptoms are getting better as expected. Your chest x-ray also showed a small left-sided pleural effusion, that demonstrates that you are retaining some extra fluid. Your general feelings of being unwell, likely could be just due to a viral illness. You were given a prescription for Zofran, for your reported nausea, you may take 1 tablet every 8 hours as needed for further nausea symptoms. Please return to the ER at any time if symptoms change or worsen. Sepsis Event Note (ED) - Evaluation Sepsis Screening Result: No Definite Risk - Focused Exam Vital Signs: Vital Signs Temp Pulse Resp BP Pulse Ox 11/03/20 18:47 97 F 82 20 131/74 86 L - My Orders Last 24 Hours: My Active Orders 11/03/20 18:57 EKG 12 Lead [EKG Documentation Completion] [RC] ROUTINE 11/03/20 19:03 EKG Documentation Completion [RC] STAT Chest 1V Frontal [CR] Stat Sodium Chloride 0.9% [Saline Flush] 10 ml FLUSH ASDIRECTED PRN 11/03/20 19:04 Peripheral IV Care [RC] . DIRECTED Peripheral IV Insertion Adult [OM.PC] Routine - Assessment/Plan Last 24 Hours: My Active Orders 11/03/20 18:57 EKG 12 Lead [EKG Documentation Completion] [RC] ROUTINE 11/03/20 19:03 EKG Documentation Completion [RC] STAT Chest 1V Frontal [CR] Stat Sodium Chloride 0.9% [Saline Flush] 10 ml FLUSH ASDIRECTED PRN 11/03/20 19:04 Peripheral IV Care [RC] . DIRECTED Peripheral IV Insertion Adult [OM.PC] Routine
[2020-11-03 19:55] LABS: CORONAVIRUS COVID-19 NAA NEGATIVE (NEGATIVE)
--- NOTE | 2020-11-04 10:45 | CR ---
Chest: Portable view of the chest was obtained. Comparison: Prior chest x-ray of 06/21/19. Heart size is slightly prominent but felt compatible with portable technique. Lungs are clear with no acute parenchymal change. Prior shoulder surgery with bilateral shoulder prostheses. Impression: 1. Findings as noted above. 2. Nothing acute is appreciated on portable chest x-ray. Diagnostic code #2
== END 2020-11-03 20:50 | disposition home or self-care (01) ==
LOC: JD.ED 18:39
DX: I13.2 Hypertensive heart and chronic kidney disease with heart failure and with stage 5 chronic kidney disease, or end stage renal disease (principal); I50.9 Heart failure, unspecified; N18.9 Chronic kidney disease, unspecified; J90 Pleural effusion, not elsewhere classified; M10.9 Gout, unspecified; I25.2 Old myocardial infarction; E66.9 Obesity, unspecified; Z68.43 Body mass index [BMI] 50.0-59.9, adult; Z20.822 Contact with and (suspected) exposure to COVID-19; Z91.048 Other nonmedicinal substance allergy status; Z88.1 Allergy status to other antibiotic agents; Z88.5 Allergy status to narcotic agent; Z91.040 Latex allergy status; Z88.0 Allergy status to penicillin; Z88.2 Allergy status to sulfonamides; Z79.02 Long term (current) use of antithrombotics/antiplatelets; Z79.899 Other long term (current) drug therapy; Z79.01 Long term (current) use of anticoagulants; Z86.711 Personal history of pulmonary embolism; Z95.5 Presence of coronary angioplasty implant and graft
CPT/HCPCS: 0240U; 36415; 36600; 71045; 80053; 82728; 82803; 83605; 83615; 83735; 83880; 84484; 85007; 85027; 85379; 85610; 85730; 86140; 93005; 99284; 93010

== ENCOUNTER 2022-09-28 14:59 | Inpatient (IN) | payer MEDICARE, BC ==
[2022-09-28] MEDS ORDERED: Sodium Chloride 0.9% 10 ML Syringe FLUSH PRN (16:53)
[2022-09-28] MEDS ORDERED: HYDROmorphone 0.5 MG/0.5 ML Syringe IVPUSH ONE ×2 (16:56→19:36)
[2022-09-28] MEDS ORDERED: Vancomycin 2 GM in Sodium Chloride 0.9% 500 ML IV ONE (21:30)
[2022-09-28] MEDS: HYDROmorphone 0.5 MG/0.5 ML Syringe IVPUSH PRN (22:39)
[2022-09-29] MEDS ORDERED: Apixaban 5 MG Tab PO SCH (00:15)
[2022-09-29] MEDS ORDERED: Apixaban 5 MG Tab PO ONE (00:30)
[2022-09-29] MEDS: HYDROmorphone 0.5 MG/0.5 ML Syringe IVPUSH PRN ×2 (01:14→23:48)
[2022-09-29] MEDS: Acetaminophen 325 MG Tab PO PRN ×3 (01:35→20:47)
[2022-09-29] MEDS: Pantoprazole 40 MG Tab.CR PO SCH (08:13)
[2022-09-29] MEDS: Gabapentin 100 MG Cap PO SCH ×2 (08:13→20:48)
[2022-09-29] MEDS: Diltiazem 180 MG Cap.CD PO SCH (08:14)
[2022-09-29] MEDS: Atenolol 50 MG Tab PO SCH (08:14)
[2022-09-29] MEDS: Folic Acid 1 MG Tab PO SCH (08:14)
[2022-09-29] MEDS: Allopurinol 300 MG Tab PO SCH (08:14)
[2022-09-29] MEDS: FLUoxetine 10 MG Cap PO SCH (08:14)
[2022-09-29] MEDS: Cholecalciferol (Vitamin D3) 5,000 UNIT Cap PO SCH (08:14)
[2022-09-29] MEDS: Losartan 50 MG Tab PO SCH (08:14)
[2022-09-29] MEDS: Apixaban 5 MG Tab PO SCH ×2 (08:15→20:47)
[2022-09-29] MEDS: traMADol 50 MG Tab PO SCH ×3 (08:23→20:46)
[2022-09-29] MEDS ORDERED: Acetaminophen 500 MG Tablet PO SCH (09:00)
[2022-09-29] MEDS ORDERED: Potassium Chloride 10 MEQ Tab.ER PO SCH (09:00)
[2022-09-29] MEDS ORDERED: Furosemide 40 MG Tab PO SCH (09:00)
[2022-09-29] MEDS: Potassium Chloride 20 MEQ Tab.ER PO SCH (12:23)
[2022-09-29] MEDS: Furosemide 40 MG/4 ML VIAL IVPUSH SCH ×2 (12:23→20:47)
[2022-09-29] MEDS: Magnesium Oxide 400 MG Tab PO SCH (15:09)
[2022-09-29] MEDS: Aspirin 81 MG Tab.EC PO SCH (15:10)
[2022-09-29] MEDS: atorvaSTATin 40 MG Tab PO SCH (20:47)
[2022-09-29] MEDS ORDERED: Gabapentin 100 MG Cap PO SCH (21:00)
[2022-09-29] MEDS: VANCOmycin 750 MG/150 ML 750 MG in Premix Bag 1 BAG IV SCH (23:48)
[2022-09-30] MEDS: traMADol 50 MG Tab PO SCH ×4 (01:33→18:50)
[2022-09-30] MEDS: Pantoprazole 40 MG Tab.CR PO SCH (09:06)
[2022-09-30] MEDS: Diltiazem 180 MG Cap.CD PO SCH (09:06)
[2022-09-30] MEDS: Gabapentin 100 MG Cap PO SCH ×2 (09:06→20:03)
[2022-09-30] MEDS: FLUoxetine 10 MG Cap PO SCH (09:06)
[2022-09-30] MEDS: Magnesium Oxide 400 MG Tab PO SCH (09:06)
[2022-09-30] MEDS: Aspirin 81 MG Tab.EC PO SCH (09:07)
[2022-09-30] MEDS: Folic Acid 1 MG Tab PO SCH (09:07)
[2022-09-30] MEDS: Allopurinol 300 MG Tab PO SCH (09:07)
[2022-09-30] MEDS: Atenolol 50 MG Tab PO SCH (09:07)
[2022-09-30] MEDS: Potassium Chloride 20 MEQ Tab.ER PO SCH (09:08)
[2022-09-30] MEDS: Furosemide 40 MG/4 ML VIAL IVPUSH SCH ×2 (09:08→20:10)
[2022-09-30] MEDS: Apixaban 5 MG Tab PO SCH ×2 (09:08→20:03)
[2022-09-30] MEDS: Losartan 50 MG Tab PO SCH (09:08)
[2022-09-30] MEDS: Cholecalciferol (Vitamin D3) 5,000 UNIT Cap PO SCH (09:08)
[2022-09-30] MEDS: fentaNYL 12 MCG/HR Transdermal Patch TOP SCH (11:01)
[2022-09-30] MEDS ORDERED: Calcium Carbonate 500 MG Tab.Chew PO PRN (14:45)
[2022-09-30] MEDS: Acetaminophen 325 MG Tab PO PRN (15:06)
[2022-09-30] MEDS: HYDROmorphone 0.5 MG/0.5 ML Syringe IVPUSH PRN (16:27)
[2022-09-30] MEDS ORDERED: Cyclobenzaprine 10 MG Tab PO ONE (16:48)
[2022-09-30] MEDS: atorvaSTATin 40 MG Tab PO SCH (20:03)
[2022-10-01] MEDS: VANCOmycin 750 MG/150 ML 750 MG in Premix Bag 1 BAG IV SCH (00:05)
[2022-10-01] MEDS: traMADol 50 MG Tab PO SCH ×5 (01:14→23:29)
[2022-10-01] MEDS: Furosemide 40 MG/4 ML VIAL IVPUSH SCH ×2 (05:41→14:13)
[2022-10-01] MEDS: Gabapentin 100 MG Cap PO SCH ×2 (09:24→23:30)
[2022-10-01] MEDS: Cholecalciferol (Vitamin D3) 5,000 UNIT Cap PO SCH (09:24)
[2022-10-01] MEDS: Losartan 50 MG Tab PO SCH (09:24)
[2022-10-01] MEDS: Diltiazem 180 MG Cap.CD PO SCH (09:24)
[2022-10-01] MEDS: Folic Acid 1 MG Tab PO SCH (09:25)
[2022-10-01] MEDS: Apixaban 5 MG Tab PO SCH ×2 (09:25→23:29)
[2022-10-01] MEDS: Aspirin 81 MG Tab.EC PO SCH (09:25)
[2022-10-01] MEDS: FLUoxetine 10 MG Cap PO SCH (09:25)
[2022-10-01] MEDS: Pantoprazole 40 MG Tab.CR PO SCH (09:25)
[2022-10-01] MEDS: Allopurinol 300 MG Tab PO SCH (09:25)
[2022-10-01] MEDS: Magnesium Oxide 400 MG Tab PO SCH (09:25)
[2022-10-01] MEDS: Potassium Chloride 20 MEQ Tab.ER PO SCH (09:25)
[2022-10-01] MEDS: Atenolol 50 MG Tab PO SCH (09:25)
[2022-10-01] MEDS: HYDROmorphone 0.5 MG/0.5 ML Syringe IVPUSH PRN (12:28)
[2022-10-01] MEDS: Acetaminophen 325 MG Tab PO PRN ×2 (12:28→17:59)
[2022-10-01] MEDS: Doxycycline 100 MG in Sodium Chloride 0.9% 100 ML IV SCH ×2 (17:59→23:24)
[2022-10-01] MEDS: atorvaSTATin 40 MG Tab PO SCH (23:29)
[2022-10-02] MEDS: HYDROmorphone 0.5 MG/0.5 ML Syringe IVPUSH PRN ×2 (02:29→05:37)
[2022-10-02] MEDS: traMADol 50 MG Tab PO SCH ×3 (05:39→19:18)
[2022-10-02] MEDS: Furosemide 40 MG/4 ML VIAL IVPUSH SCH ×2 (06:57→13:26)
[2022-10-02] MEDS: Apixaban 5 MG Tab PO SCH ×2 (09:01→20:46)
[2022-10-02] MEDS: Potassium Chloride 20 MEQ Tab.ER PO SCH (09:01)
[2022-10-02] MEDS: Allopurinol 300 MG Tab PO SCH (09:01)
[2022-10-02] MEDS: Doxycycline 100 MG in Sodium Chloride 0.9% 100 ML IV SCH ×2 (09:01→20:46)
[2022-10-02] MEDS: Atenolol 50 MG Tab PO SCH (09:02)
[2022-10-02] MEDS: Losartan 50 MG Tab PO SCH (09:02)
[2022-10-02] MEDS: Aspirin 81 MG Tab.EC PO SCH (09:02)
[2022-10-02] MEDS: Magnesium Oxide 400 MG Tab PO SCH (09:03)
[2022-10-02] MEDS: Folic Acid 1 MG Tab PO SCH (09:03)
[2022-10-02] MEDS: Gabapentin 100 MG Cap PO SCH ×2 (09:03→20:46)
[2022-10-02] MEDS: Cholecalciferol (Vitamin D3) 5,000 UNIT Cap PO SCH (09:03)
[2022-10-02] MEDS: FLUoxetine 10 MG Cap PO SCH (09:03)
[2022-10-02] MEDS: Diltiazem 180 MG Cap.CD PO SCH (09:04)
[2022-10-02] MEDS: Pantoprazole 40 MG Tab.CR PO SCH (09:04)
[2022-10-02] MEDS: Acetaminophen 325 MG Tab PO PRN ×2 (12:33→19:18)
[2022-10-02] MEDS: atorvaSTATin 40 MG Tab PO SCH (20:46)
[2022-10-03] MEDS: Acetaminophen 325 MG Tab PO PRN ×2 (00:10→06:36)
[2022-10-03] MEDS: traMADol 50 MG Tab PO SCH ×4 (00:11→17:42)
[2022-10-03] MEDS: Furosemide 40 MG/4 ML VIAL IVPUSH SCH ×2 (06:37→14:04)
[2022-10-03] MEDS: Doxycycline 100 MG in Sodium Chloride 0.9% 100 ML IV SCH ×2 (08:44→20:20)
[2022-10-03] MEDS: Magnesium Oxide 400 MG Tab PO SCH (08:53)
[2022-10-03] MEDS: Allopurinol 300 MG Tab PO SCH (08:54)
[2022-10-03] MEDS: Apixaban 5 MG Tab PO SCH ×2 (09:00→20:18)
[2022-10-03] MEDS: FLUoxetine 10 MG Cap PO SCH (09:00)
[2022-10-03] MEDS: Pantoprazole 40 MG Tab.CR PO SCH (09:00)
[2022-10-03] MEDS: Gabapentin 100 MG Cap PO SCH ×2 (09:01→20:19)
[2022-10-03] MEDS: Losartan 50 MG Tab PO SCH (09:02)
[2022-10-03] MEDS: Cholecalciferol (Vitamin D3) 5,000 UNIT Cap PO SCH (09:03)
[2022-10-03] MEDS: Aspirin 81 MG Tab.EC PO SCH (09:03)
[2022-10-03] MEDS: Atenolol 50 MG Tab PO SCH (09:04)
[2022-10-03] MEDS: Diltiazem 180 MG Cap.CD PO SCH (09:04)
[2022-10-03] MEDS: Potassium Chloride 20 MEQ Tab.ER PO SCH (09:04)
[2022-10-03] MEDS: Folic Acid 1 MG Tab PO SCH (09:04)
[2022-10-03] MEDS: fentaNYL 12 MCG/HR Transdermal Patch TOP SCH (09:26)
[2022-10-03] MEDS: HYDROmorphone 0.5 MG/0.5 ML Syringe IVPUSH PRN ×2 (11:07→22:24)
[2022-10-03] MEDS: atorvaSTATin 40 MG Tab PO SCH (20:19)
[2022-10-04] MEDS: traMADol 50 MG Tab PO SCH ×5 (00:42→23:30)
[2022-10-04] MEDS: Furosemide 40 MG/4 ML VIAL IVPUSH SCH ×2 (05:36→14:41)
[2022-10-04] MEDS: Doxycycline 100 MG in Sodium Chloride 0.9% 100 ML IV SCH ×2 (09:04→21:08)
[2022-10-04] MEDS: FLUoxetine 10 MG Cap PO SCH (09:06)
[2022-10-04] MEDS: Diltiazem 180 MG Cap.CD PO SCH (09:06)
[2022-10-04] MEDS: Pantoprazole 40 MG Tab.CR PO SCH (09:07)
[2022-10-04] MEDS: Gabapentin 100 MG Cap PO SCH ×2 (09:07→21:15)
[2022-10-04] MEDS: Magnesium Oxide 400 MG Tab PO SCH (09:07)
[2022-10-04] MEDS: Allopurinol 300 MG Tab PO SCH (09:08)
[2022-10-04] MEDS: Acetaminophen 325 MG Tab PO PRN ×2 (09:09→23:10)
[2022-10-04] MEDS: Folic Acid 1 MG Tab PO SCH (09:09)
[2022-10-04] MEDS: Cholecalciferol (Vitamin D3) 5,000 UNIT Cap PO SCH (09:10)
[2022-10-04] MEDS: Losartan 50 MG Tab PO SCH (09:11)
[2022-10-04] MEDS: Atenolol 50 MG Tab PO SCH (09:15)
[2022-10-04] MEDS: Aspirin 81 MG Tab.EC PO SCH (09:16)
[2022-10-04] MEDS: Potassium Chloride 20 MEQ Tab.ER PO SCH (09:16)
[2022-10-04] MEDS: Apixaban 5 MG Tab PO SCH ×2 (09:16→21:13)
[2022-10-04] MEDS: atorvaSTATin 40 MG Tab PO SCH (21:14)
[2022-10-05] MEDS: traMADol 50 MG Tab PO SCH ×4 (06:19→23:30)
[2022-10-05] MEDS: Acetaminophen 325 MG Tab PO PRN ×2 (06:20→19:50)
[2022-10-05] MEDS: Furosemide 40 MG/4 ML VIAL IVPUSH SCH (06:20)
[2022-10-05] MEDS: Doxycycline 100 MG in Sodium Chloride 0.9% 100 ML IV SCH ×2 (09:00→12:09)
[2022-10-05] MEDS: Magnesium Oxide 400 MG Tab PO SCH (09:02)
[2022-10-05] MEDS: Gabapentin 100 MG Cap PO SCH ×3 (09:02→22:13)
[2022-10-05] MEDS: Pantoprazole 40 MG Tab.CR PO SCH (09:02)
[2022-10-05] MEDS: Folic Acid 1 MG Tab PO SCH (09:03)
[2022-10-05] MEDS: Potassium Chloride 20 MEQ Tab.ER PO SCH (09:03)
[2022-10-05] MEDS: FLUoxetine 10 MG Cap PO SCH (09:03)
[2022-10-05] MEDS: Atenolol 50 MG Tab PO SCH (09:04)
[2022-10-05] MEDS: Allopurinol 300 MG Tab PO SCH (09:04)
[2022-10-05] MEDS: Diltiazem 180 MG Cap.CD PO SCH (09:04)
[2022-10-05] MEDS: Aspirin 81 MG Tab.EC PO SCH (09:04)
[2022-10-05] MEDS: Apixaban 5 MG Tab PO SCH ×3 (09:04→22:13)
[2022-10-05] MEDS: Cholecalciferol (Vitamin D3) 5,000 UNIT Cap PO SCH (09:05)
[2022-10-05] MEDS: Losartan 50 MG Tab PO SCH (09:05)
[2022-10-05] MEDS: Spironolactone 25 MG Tab PO SCH (09:53)
[2022-10-05] MEDS: Doxycycline Monohydrate 100 MG Cap PO SCH ×3 (09:53→22:13)
[2022-10-05] MEDS: Furosemide 20 MG Tab PO SCH (13:40)
[2022-10-05] MEDS: Diclofenac Sodium 1% Gel 100 GM Tube TOP PRN ×2 (15:28→23:32)
[2022-10-05] MEDS: atorvaSTATin 40 MG Tab PO SCH ×2 (19:51→22:13)
[2022-10-06] MEDS: traMADol 50 MG Tab PO SCH ×3 (05:30→17:56)
[2022-10-06] MEDS: Acetaminophen 325 MG Tab PO PRN ×2 (05:31→20:25)
[2022-10-06] MEDS: Furosemide 20 MG Tab PO SCH ×2 (05:31→14:49)
[2022-10-06] MEDS: Diclofenac Sodium 1% Gel 100 GM Tube TOP PRN ×3 (05:33→20:40)
[2022-10-06] MEDS: Cholecalciferol (Vitamin D3) 5,000 UNIT Cap PO SCH (09:22)
[2022-10-06] MEDS: FLUoxetine 10 MG Cap PO SCH (09:22)
[2022-10-06] MEDS: Magnesium Oxide 400 MG Tab PO SCH (09:22)
[2022-10-06] MEDS: Diltiazem 180 MG Cap.CD PO SCH (09:22)
[2022-10-06] MEDS: Gabapentin 100 MG Cap PO SCH ×2 (09:23→20:17)
[2022-10-06] MEDS: Allopurinol 300 MG Tab PO SCH (09:23)
[2022-10-06] MEDS: Potassium Chloride 20 MEQ Tab.ER PO SCH (09:23)
[2022-10-06] MEDS: Doxycycline Monohydrate 100 MG Cap PO SCH ×2 (09:23→20:17)
[2022-10-06] MEDS: Atenolol 50 MG Tab PO SCH (09:23)
[2022-10-06] MEDS: Apixaban 5 MG Tab PO SCH ×2 (09:25→20:17)
[2022-10-06] MEDS: Aspirin 81 MG Tab.EC PO SCH (09:25)
[2022-10-06] MEDS: Folic Acid 1 MG Tab PO SCH (09:25)
[2022-10-06] MEDS: Pantoprazole 40 MG Tab.CR PO SCH (09:25)
[2022-10-06] MEDS: Losartan 50 MG Tab PO SCH (10:00)
[2022-10-06] MEDS: fentaNYL 12 MCG/HR Transdermal Patch TOP SCH (13:01)
[2022-10-06] MEDS: Spironolactone 25 MG Tab PO SCH (13:04)
[2022-10-06] MEDS ORDERED: Lidocaine 4% Crm 5 Gm with Transparent Dressing Kit TOP SCH (15:00)
[2022-10-06] MEDS: LIDOCAINE TOP SCH ×2 (16:23→21:43)
[2022-10-06] MEDS: atorvaSTATin 40 MG Tab PO SCH (20:18)
[2022-10-06 22:33] VITALS: PULSE 60
[2022-10-07] MEDS: traMADol 50 MG Tab PO SCH ×3 (00:25→12:29)
[2022-10-07] MEDS: Furosemide 20 MG Tab PO SCH ×2 (05:32→13:56)
[2022-10-07] MEDS: Allopurinol 300 MG Tab PO SCH (08:37)
[2022-10-07] MEDS: Diltiazem 180 MG Cap.CD PO SCH (08:37)
[2022-10-07] MEDS: Gabapentin 100 MG Cap PO SCH (08:38)
[2022-10-07] MEDS: Pantoprazole 40 MG Tab.CR PO SCH (08:38)
[2022-10-07] MEDS: Doxycycline Monohydrate 100 MG Cap PO SCH (08:38)
[2022-10-07] MEDS: Aspirin 81 MG Tab.EC PO SCH (08:38)
[2022-10-07] MEDS: Potassium Chloride 20 MEQ Tab.ER PO SCH (08:38)
[2022-10-07] MEDS: FLUoxetine 10 MG Cap PO SCH (08:38)
[2022-10-07] MEDS: Magnesium Oxide 400 MG Tab PO SCH (08:39)
[2022-10-07] MEDS: Cholecalciferol (Vitamin D3) 5,000 UNIT Cap PO SCH (08:39)
[2022-10-07] MEDS: Apixaban 5 MG Tab PO SCH (08:39)
[2022-10-07] MEDS: Atenolol 50 MG Tab PO SCH (08:39)
[2022-10-07] MEDS: Folic Acid 1 MG Tab PO SCH (08:39)
[2022-10-07] MEDS: Losartan 50 MG Tab PO SCH (08:39)
[2022-10-07] MEDS: Spironolactone 25 MG Tab PO SCH (08:39)
[2022-10-07] MEDS: LIDOCAINE TOP SCH ×2 (10:13→16:01)
[2022-10-07] MEDS: Diclofenac Sodium 1% Gel 100 GM Tube TOP PRN (10:15)
[2022-10-07] MEDS: Acetaminophen 325 MG Tab PO PRN (12:28)
[2022-10-07 15:43] VITALS: BP 121/92
== END 2022-10-07 17:18 | disposition home health service (06) | DRG 602 ==
LOC: JD.ED 14:59 → JD.MS 21:14
PROVIDERS: ADMIT Internal Medicine; ATTEND Pediatrics
DX: L03.116 Cellulitis of left lower limb (principal); I50.33 Acute on chronic diastolic (congestive) heart failure; J96.01 Acute respiratory failure with hypoxia; I13.0 Hypertensive heart and chronic kidney disease with heart failure and stage 1 through stage 4 chronic kidney disease, or unspecified chronic kidney disease; N17.9 Acute kidney failure, unspecified; Z68.43 Body mass index [BMI] 50.0-59.9, adult; I48.20 Chronic atrial fibrillation, unspecified; L03.115 Cellulitis of right lower limb; K21.00 Gastro-esophageal reflux disease with esophagitis, without bleeding; I44.1 Atrioventricular block, second degree; M54.2 Cervicalgia; G47.33 Obstructive sleep apnea (adult) (pediatric); N18.30 Chronic kidney disease, stage 3 unspecified; I25.10 Atherosclerotic heart disease of native coronary artery without angina pectoris; M81.0 Age-related osteoporosis without current pathological fracture; L97.319 Non-pressure chronic ulcer of right ankle with unspecified severity; K57.90 Diverticulosis of intestine, part unspecified, without perforation or abscess without bleeding; Z96.611 Presence of right artificial shoulder joint; Z96.612 Presence of left artificial shoulder joint; Z96.643 Presence of artificial hip joint, bilateral; Z96.653 Presence of artificial knee joint, bilateral; E66.01 Morbid (severe) obesity due to excess calories; H91.93 Unspecified hearing loss, bilateral; Z87.440 Personal history of urinary (tract) infections; Z90.49 Acquired absence of other specified parts of digestive tract; Z86.16 Personal history of COVID-19; Z91.09 Other allergy status, other than to drugs and biological substances; Z88.1 Allergy status to other antibiotic agents; Z91.040 Latex allergy status; Z88.2 Allergy status to sulfonamides; Z88.5 Allergy status to narcotic agent; R10.9 Unspecified abdominal pain; I25.2 Old myocardial infarction; Z95.0 Presence of cardiac pacemaker; I10 Essential (primary) hypertension; M10.9 Gout, unspecified; E66.9 Obesity, unspecified; Z79.01 Long term (current) use of anticoagulants; Z79.899 Other long term (current) drug therapy; Z95.5 Presence of coronary angioplasty implant and graft
CPT/HCPCS: 36410; 36415; 71046; 71046-26; 74176; 74176-26; 76770; 76770-26; 80048; 80053; 80202; 81001; 82550; 83605; 83615; 83690; 83735; 83880; 84484; 85007; 85025; 85027; 85610; 86140; 87040; 87641; 93005; 93306; 93970; 93970-26; 94760; 94761; 96374; 96376; 97116-GP; 97162-GP; 97166-GO; 97530-GO; 97530-GP; 97535-GO; 99223; 99233; 99283; 99285-25; A9270-GY; J1170; J1940; J3370; J3490; J7040

== ENCOUNTER 2022-11-23 14:58 | Inpatient (IN) | payer MEDICARE, BC ==
[2022-11-23] MEDS ORDERED: Sodium Chloride 0.9% 10 ML Syringe FLUSH PRN (15:56)
[2022-11-23] MEDS ORDERED: Albuterol/Ipratropium 3.0-0.5 MG/3 ML Neb Soln NEB ONE (15:56)
[2022-11-23] MEDS ORDERED: Ondansetron 4 MG/2 ML SDV IVPUSH ONE (16:34)
[2022-11-23 16:55] LABS: CORONAVIRUS COVID-19 NAA NEGATIVE (NEGATIVE)
[2022-11-23] MEDS ORDERED: Ketorolac 0.5% Ophth Soln 5 ML Bottle EYEBOTH ONE (17:11)
[2022-11-23] MEDS ORDERED: Furosemide 40 MG/4 ML VIAL IVPUSH ONE (18:35)
[2022-11-23] MEDS ORDERED: HYDROmorphone 1 MG/ML Syringe IVPUSH ONE (20:23)
[2022-11-23] MEDS ORDERED: Piperacillin/Tazobactam 4.5 GM in Sodium Chloride 0.9% 100 ML IV ONE (20:23)
[2022-11-23] MEDS ORDERED: DEXTROSE 5% IV ONE ×2 (20:27)
[2022-11-23] MEDS ORDERED: WATER IV ONE ×2 (20:27)
[2022-11-23] MEDS ORDERED: VANCOMYCIN IV ONE ×2 (20:27)
[2022-11-24] MEDS ORDERED: Bacitracin/Hydrocortisone/Neomycin/Polymyxin Ophth Oint 3.5 GM Tube EYEBOTH SCH (00:22)
[2022-11-24] MEDS ORDERED: Vancomycin 2 GM in Sodium Chloride 0.9% 500 ML IV ONE (01:30)
[2022-11-24] MEDS: Bacitracin/Neomycin/Polymyxin B Oint 15 GM Tube TOP SCH ×5 (02:45→21:10)
[2022-11-24] MEDS: Acetaminophen 325 MG Tab PO PRN ×3 (05:09→17:37)
[2022-11-24] MEDS: Pantoprazole 40 MG Tab.CR PO SCH (07:34)
[2022-11-24] MEDS ORDERED: Losartan 50 MG Tab PO SCH (09:00)
[2022-11-24] MEDS ORDERED: Furosemide 40 MG/4 ML VIAL IVPUSH SCH (09:00)
[2022-11-24] MEDS ORDERED: Atenolol 50 MG Tab PO SCH (09:00)
[2022-11-24] MEDS ORDERED: Diclofenac Sodium 1% Gel 100 GM Tube TOP PRN (09:10)
[2022-11-24] MEDS: Apixaban 5 MG Tab PO SCH ×2 (09:11→21:11)
[2022-11-24] MEDS: Gabapentin 100 MG Cap PO SCH ×2 (09:12→21:11)
[2022-11-24] MEDS: Diltiazem 120 MG Cap.CD PO SCH (09:12)
[2022-11-24] MEDS ORDERED: Albuterol 0.083% 2.5 MG/3 ML Neb Soln NEB PRN (09:13)
[2022-11-24] MEDS ORDERED: Docusate Sodium 100 MG Cap PO PRN (09:13)
[2022-11-24] MEDS ORDERED: Ondansetron 4 MG/2 ML SDV IV PRN (09:13)
[2022-11-24] MEDS: FLUoxetine 20 MG Cap PO SCH (09:21)
[2022-11-24] MEDS: Albuterol/Ipratropium 3.0-0.5 MG/3 ML Neb Soln NEB SCH ×3 (09:55→21:23)
[2022-11-24] MEDS ORDERED: Furosemide 40 MG/4 ML VIAL IVPUSH ONE (10:30)
[2022-11-24] MEDS ORDERED: Piperacillin/Tazobactam 4.5 GM in Sodium Chloride 0.9% 100 ML IV SCH ×2 (11:00→23:00)
[2022-11-24] MEDS ORDERED: Magnesium Sulfate/Water 2 GM in Premix Bag 1 BAG IV ONE (11:51)
[2022-11-24] MEDS: traMADol 50 MG Tab PO PRN ×2 (11:55→21:20)
[2022-11-24] MEDS ORDERED: Lidocaine 4% 1 each Patch TOP PRN (14:13)
[2022-11-24] MEDS ORDERED: traMADol 50 MG Tab PO SCH (15:00)
[2022-11-24] MEDS: guaiFENesin/Dextromethorphan 100-10 MG/5 ML Soln 5 ML Cup PO SCH ×2 (15:03→21:11)
[2022-11-24] MEDS: Furosemide 40 MG/4 ML VIAL IVPUSH SCH (15:03)
[2022-11-24] MEDS ORDERED: VANCOmycin 500 MG/100 ML 500 MG in Premix Bag 1 BAG IV SCH (18:00)
[2022-11-24] MEDS ORDERED: Potassium Chloride 20 MEQ Tab.ER PO SCH (21:00)
[2022-11-24] MEDS: Gabapentin 300 MG Cap PO SCH (21:11)
[2022-11-25] MEDS: Albuterol/Ipratropium 3.0-0.5 MG/3 ML Neb Soln NEB SCH ×4 (06:15→20:28)
[2022-11-25] MEDS: Furosemide 40 MG/4 ML VIAL IVPUSH SCH ×2 (06:30→14:14)
[2022-11-25] MEDS: Pantoprazole 40 MG Tab.CR PO SCH (06:30)
[2022-11-25] MEDS: guaiFENesin/Dextromethorphan 100-10 MG/5 ML Soln 5 ML Cup PO SCH ×3 (06:31→20:16)
[2022-11-25] MEDS: Gabapentin 100 MG Cap PO SCH ×2 (08:21→20:16)
[2022-11-25] MEDS: Apixaban 5 MG Tab PO SCH ×2 (08:21→20:15)
[2022-11-25] MEDS: FLUoxetine 20 MG Cap PO SCH (08:22)
[2022-11-25] MEDS: Bacitracin/Neomycin/Polymyxin B Oint 15 GM Tube TOP SCH ×4 (08:22→20:19)
[2022-11-25] MEDS: Folic Acid 1 MG Tab PO SCH (08:23)
[2022-11-25] MEDS: Acetaminophen 325 MG Tab PO PRN ×2 (08:27→20:16)
[2022-11-25] MEDS: Diltiazem 120 MG Cap.CD PO SCH (08:31)
[2022-11-25] MEDS: Atenolol 25 MG Tab PO SCH (08:31)
[2022-11-25] MEDS: cefTRIAXone 2 GM in Sodium Chloride 0.9% 100 ML IV SCH (09:18)
[2022-11-25] MEDS ORDERED: Sodium Chloride 0.9% 1,000 ML IV SCH (15:30)
[2022-11-25] MEDS: traMADol 50 MG Tab PO PRN (17:13)
[2022-11-25] MEDS: Gabapentin 300 MG Cap PO SCH (20:16)
[2022-11-26] MEDS: Albuterol/Ipratropium 3.0-0.5 MG/3 ML Neb Soln NEB SCH ×4 (06:03→20:34)
[2022-11-26] MEDS: guaiFENesin/Dextromethorphan 100-10 MG/5 ML Soln 5 ML Cup PO SCH ×3 (06:14→20:09)
[2022-11-26] MEDS: Pantoprazole 40 MG Tab.CR PO SCH (06:14)
[2022-11-26] MEDS: Gabapentin 100 MG Cap PO SCH ×2 (09:11→20:09)
[2022-11-26] MEDS: Atenolol 25 MG Tab PO SCH (09:11)
[2022-11-26] MEDS: cefTRIAXone 2 GM in Sodium Chloride 0.9% 100 ML IV SCH (09:11)
[2022-11-26] MEDS: Folic Acid 1 MG Tab PO SCH (09:12)
[2022-11-26] MEDS: Diltiazem 120 MG Cap.CD PO SCH (09:12)
[2022-11-26] MEDS: Apixaban 5 MG Tab PO SCH ×2 (09:12→20:10)
[2022-11-26] MEDS: FLUoxetine 20 MG Cap PO SCH (09:12)
[2022-11-26] MEDS: Bacitracin/Neomycin/Polymyxin B Oint 15 GM Tube TOP SCH ×4 (09:13→20:10)
[2022-11-26] MEDS: traMADol 50 MG Tab PO PRN ×2 (14:02→20:09)
[2022-11-26] MEDS: Gabapentin 300 MG Cap PO SCH (20:09)
[2022-11-27] MEDS: guaiFENesin/Dextromethorphan 100-10 MG/5 ML Soln 5 ML Cup PO SCH ×3 (06:02→21:25)
[2022-11-27] MEDS: Pantoprazole 40 MG Tab.CR PO SCH (06:02)
[2022-11-27] MEDS: Albuterol/Ipratropium 3.0-0.5 MG/3 ML Neb Soln NEB SCH ×4 (06:37→21:20)
[2022-11-27] MEDS ORDERED: Furosemide 40 MG Tab PO ONE (08:23)
[2022-11-27] MEDS: cefTRIAXone 2 GM in Sodium Chloride 0.9% 100 ML IV SCH (09:00)
[2022-11-27] MEDS: Apixaban 5 MG Tab PO SCH ×2 (09:03→21:25)
[2022-11-27] MEDS: Gabapentin 100 MG Cap PO SCH ×2 (09:04→21:26)
[2022-11-27] MEDS: FLUoxetine 20 MG Cap PO SCH (09:04)
[2022-11-27] MEDS: Atenolol 50 MG Tab PO SCH (09:05)
[2022-11-27] MEDS: Folic Acid 1 MG Tab PO SCH (09:09)
[2022-11-27] MEDS: traMADol 50 MG Tab PO PRN (09:10)
[2022-11-27] MEDS: Diltiazem 120 MG Cap.CD PO SCH (09:11)
[2022-11-27] MEDS: Bacitracin/Neomycin/Polymyxin B Oint 15 GM Tube TOP SCH ×4 (09:11→21:37)
[2022-11-27] MEDS: Acetaminophen 325 MG Tab PO PRN ×2 (09:18→14:22)
[2022-11-27] MEDS ORDERED: Furosemide 20 MG Tab PO SCH (14:00)
[2022-11-27] MEDS: Gabapentin 300 MG Cap PO SCH (21:25)
[2022-11-28] MEDS ORDERED: Furosemide 20 MG Tab PO SCH (06:00)
[2022-11-28] MEDS: Albuterol/Ipratropium 3.0-0.5 MG/3 ML Neb Soln NEB SCH ×2 (06:10→09:00)
[2022-11-28] MEDS: guaiFENesin/Dextromethorphan 100-10 MG/5 ML Soln 5 ML Cup PO SCH (06:16)
[2022-11-28] MEDS: Pantoprazole 40 MG Tab.CR PO SCH (06:17)
[2022-11-28] MEDS: Acetaminophen 325 MG Tab PO PRN (06:20)
[2022-11-28] MEDS: traMADol 50 MG Tab PO PRN (06:21)
[2022-11-28] MEDS: Apixaban 5 MG Tab PO SCH (08:18)
[2022-11-28] MEDS: Gabapentin 100 MG Cap PO SCH (08:18)
[2022-11-28] MEDS: Diltiazem 120 MG Cap.CD PO SCH (08:19)
[2022-11-28] MEDS: cefTRIAXone 2 GM in Sodium Chloride 0.9% 100 ML IV SCH (08:21)
[2022-11-28] MEDS: FLUoxetine 20 MG Cap PO SCH (08:21)
[2022-11-28] MEDS: Atenolol 50 MG Tab PO SCH (08:21)
[2022-11-28] MEDS: Folic Acid 1 MG Tab PO SCH (08:21)
[2022-11-28] MEDS: Bacitracin/Neomycin/Polymyxin B Oint 15 GM Tube TOP SCH (08:22)
[2022-11-28 12:49] VITALS: BP 108/56; PULSE 60
== END 2022-11-28 13:05 | disposition home or self-care (01) | DRG 193 ==
LOC: JD.ED 14:58 → JD.MS 20:29
PROVIDERS: ADMIT Internal Medicine; ATTEND Internal Medicine
DX: J18.9 Pneumonia, unspecified organism (principal); I50.43 Acute on chronic combined systolic (congestive) and diastolic (congestive) heart failure; J96.01 Acute respiratory failure with hypoxia; I48.92 Unspecified atrial flutter; J90 Pleural effusion, not elsewhere classified; J98.11 Atelectasis; Q21.12 Patent foramen ovale; N18.4 Chronic kidney disease, stage 4 (severe); N17.9 Acute kidney failure, unspecified; Z68.43 Body mass index [BMI] 50.0-59.9, adult; I48.20 Chronic atrial fibrillation, unspecified; H10.33 Unspecified acute conjunctivitis, bilateral; I11.0 Hypertensive heart disease with heart failure; I27.21 Secondary pulmonary arterial hypertension; H91.90 Unspecified hearing loss, unspecified ear; H54.7 Unspecified visual loss; G89.29 Other chronic pain; M54.9 Dorsalgia, unspecified; F03.90 Unspecified dementia, unspecified severity, without behavioral disturbance, psychotic disturbance, mood disturbance, and anxiety; E66.01 Morbid (severe) obesity due to excess calories; M15.9 Polyosteoarthritis, unspecified; K21.9 Gastro-esophageal reflux disease without esophagitis; M10.9 Gout, unspecified; M81.0 Age-related osteoporosis without current pathological fracture; R94.31 Abnormal electrocardiogram [ECG] [EKG]; I25.10 Atherosclerotic heart disease of native coronary artery without angina pectoris; E83.42 Hypomagnesemia; Z20.822 Contact with and (suspected) exposure to COVID-19; Z96.642 Presence of left artificial hip joint; G47.30 Sleep apnea, unspecified; Z96.653 Presence of artificial knee joint, bilateral; Z96.612 Presence of left artificial shoulder joint; Z96.611 Presence of right artificial shoulder joint; I08.1 Rheumatic disorders of both mitral and tricuspid valves; M54.2 Cervicalgia; E66.9 Obesity, unspecified; Z99.81 Dependence on supplemental oxygen; Z86.718 Personal history of other venous thrombosis and embolism; I25.2 Old myocardial infarction; Z79.899 Other long term (current) drug therapy; Z79.01 Long term (current) use of anticoagulants; Z95.0 Presence of cardiac pacemaker; Z90.49 Acquired absence of other specified parts of digestive tract; Z98.890 Other specified postprocedural states; Z88.0 Allergy status to penicillin; Z88.1 Allergy status to other antibiotic agents; Z88.2 Allergy status to sulfonamides; Z88.8 Allergy status to other drugs, medicaments and biological substances; Z95.5 Presence of coronary angioplasty implant and graft; Z86.711 Personal history of pulmonary embolism
CPT/HCPCS: 0241U; 36415; 51702; 71045; 71250; 76770; 80048; 80053; 80202; 82553; 83605; 83735; 83880; 84145; 84484; 85025; 86140; 87040; 93005; 93307; 94640; 94667; 94668; 94761; 94762; 96365; 96375; 97116; 97162; 97166; 97530; 97535; 99284; 93010; 99285; A9270-GY; J0696; J1170; J1940; J2405; J2543; J3370; J3475; J3490; J7030; J7040; J7620-GY

== ENCOUNTER 2025-03-04 18:16 | Emergency (ER) | payer MEDICARE, BC ==
[2025-03-04] MEDS ORDERED: Sodium Chloride 0.9% 10 ML Syringe FLUSH PRN (18:58)
[2025-03-04 19:34] LABS: HEMATOCRIT 42.4 % (37.0-47.0); HEMOGLOBIN 13.8 gm/dl (12.0-16.0); MEAN CORPUSCULAR HEMOGLOBIN 32.5 pg (28.0-32.0); MEAN CORPUSCULAR HGB CONC 32.5 g/dl (32.0-36.0); MEAN CORPUSCULAR VOLUME 99.8 fl (83.0-99.0); MEAN PLATELET VOLUME 9.3 fl (9.4-12.3); PLATELET COUNT,PLT 190 K/mm3 (150-400); RED BLOOD CELL COUNT 4.25 M/mm3 (4.10-5.30); WHITE BLOOD CELL COUNT,WBC 8.21 K/mm3 (3.9-11.3)
[2025-03-04 19:51] LABS: ANISOCYTOSIS 1+ SLIGHT; BAND PERCENT MAN 0 % (0-10); BASOPHILS PERCENT MAN 0 (0.1-1.2); EOSINOPHILS PERCENT MAN 1 % (0.7-5.8); INR 1.05; LYMPHOCYTES % ATYPICAL MANUAL 1 %; LYMPHOCYTES PERCENT MAN 23 % (20-40); MONOCYTES PERCENT MAN 7 % (2-10); PLATELET COUNT ESTIMATE ADEQUATE; PROTHROMBIN TIME 11.1 SECONDS (9.7-12.0)
[2025-03-04 20:00] LABS: A/G RATIO 0.9 (1-2); ALBUMIN 3.4 g/dl (3.4-5.0); ANION GAP 11.6 (5-15); BILIRUBIN TOTAL 1.2 mg/dL (0.2-1.0); BUN/CREATININE RATIO 15.8 (14-18); C-REACTIVE PROTEIN 0.96 mg/dL (<0.30); CALCIUM 9.8 mg/dL (8.5-10.1); CREATININE 1.2 mg/dL (0.55-1.02); EST CRCL DRUG DOSING (CG) 28.52 mL/min; POTASSIUM,K 3.6 mEq/L (3.5-5.1); PROTEIN TOTAL,TP 7.4 g/dl (6.4-8.2)
[2025-03-04 20:05] LABS: LACTIC ACID 1.5 mmol/L (0.4-2.0)
[2025-03-04 20:07] LABS: APPEARANCE,URINE CLEAR (Clear); BILIRUBIN,URINE NEGATIVE (Negative); COLOR,URINE YELLOW (Yellow); GLUCOSE,URINE NEGATIVE (Negative); KETONES,URINE NEGATIVE (Negative); LEUKOCYTE ESTERASE,URINE TRACE (Negative); NITRITE,URINE NEGATIVE (Negative); OCCULT BLOOD,URINE NEGATIVE (Negative); PROTEIN,URINE 2+ (Negative)
[2025-03-04 20:23] LABS: BACTERIA,URINE MODERATE /hpf (FEW); HYALINE CASTS,URINE 0-5 /lpf (0-5); MUCUS,URINE NOT SEEN /hpf (FEW); RBC,URINE 0-5 /hpf (0-5)
[2025-03-04 21:38] VITALS: BP 135/59; PULSE 69
== END 2025-03-04 21:37 | disposition home or self-care (01) ==
LOC: JD.ED 18:16
DX: S42.294A Other nondisplaced fracture of upper end of right humerus, initial encounter for closed fracture (principal); R68.83 Chills (without fever); I48.91 Unspecified atrial fibrillation; I13.0 Hypertensive heart and chronic kidney disease with heart failure and stage 1 through stage 4 chronic kidney disease, or unspecified chronic kidney disease; I50.9 Heart failure, unspecified; N18.9 Chronic kidney disease, unspecified; I25.10 Atherosclerotic heart disease of native coronary artery without angina pectoris; E78.00 Pure hypercholesterolemia, unspecified; Z86.16 Personal history of COVID-19; Z88.1 Allergy status to other antibiotic agents; Z88.2 Allergy status to sulfonamides; Z88.5 Allergy status to narcotic agent; Z91.048 Other nonmedicinal substance allergy status; Z91.040 Latex allergy status; Z79.899 Other long term (current) drug therapy; Z79.01 Long term (current) use of anticoagulants; Z95.5 Presence of coronary angioplasty implant and graft; X58.XXXA Exposure to other specified factors, initial encounter
CPT/HCPCS: 36415; 71045; 71045-26; 80053; 81001; 83605; 85007; 85027; 85610; 86140; 87040; 87086; 87088; 87186; 99283

== ENCOUNTER 2025-04-10 09:44 | Emergency (ER) | payer MEDICARE, BC ==
[2025-04-10 10:20] LABS: BASOPHILS ABSOLUTE AUTO 0.1 K/mm3 (0.0-0.2); BASOPHILS PERCENT AUTO 0.7 % (0.0-1.0); EOSINOPHILS ABSOLUTE AUTO 0.1 K/mm3 (0.0-0.4); EOSINOPHILS PERCENT AUTO 1.9 % (0.0-6.0); IMMATURE GRAN ABSOLUTE AUTO 0.04 K/mm3 (0.00-0.05); IMMATURE GRAN PERCENT AUTO 0.6 % (0.0-0.4); LYMPHOCYTES ABSOLUTE AUTO 1.4 K/mm3 (1.0-4.8); LYMPHOCYTES PERCENT AUTO 20.2 % (24.0-44.0); MEAN PLATELET VOLUME 9.5 fl (9.4-12.3); MONOCYTES ABSOLUTE AUTO 0.7 K/mm3 (0.0-0.8); MONOCYTES PERCENT AUTO 9.6 % (0.0-8.0); NEUTROPHILS ABSOLUTE AUTO 4.6 K/mm3 (1.8-7.7); NEUTROPHILS PERCENT AUTO 67.0 % (41.0-71.0); NRBC ABSOLUTE 0.00 (0.00-0.02); NRBC PERCENT 0.0 % (0.0-0.2); PLATELET COUNT,PLT 240 K/mm3 (150-400); RED BLOOD CELL COUNT 4.12 M/mm3 (4.10-5.30); WHITE BLOOD CELL COUNT,WBC 6.88 K/mm3 (3.9-11.3)
[2025-04-10 10:40] LABS: INR 1.04
[2025-04-10 10:47] LABS: A/G RATIO 0.9 (1-2); ALANINE AMINOTRANSFERASE,ALT 23.0 U/L (14-59); ASPARTATE AMNIOTRANSFERASE,AST 29.0 U/L (15-37); BILIRUBIN TOTAL 0.6 mg/dL (0.2-1.0); BLOOD UREA NITROGEN,BUN 32.0 mg/dL (7-18); CARBON DIOXIDE,CO2 29.0 mEq/L (21-32); CHLORIDE,CL 102.0 mEq/L (98-107); CREATINE KINASE,CK 64.0 U/L (26-192); CREATININE 1.2 mg/dL (0.55-1.02); EST CRCL DRUG DOSING (CG) 30.92 mL/min; ESTIMATED GFR 44.0 mL/min (>60); GLUCOSE RANDOM 110.0 mg/dL (70-99); PROTEIN TOTAL,TP 7.2 g/dl (6.4-8.2); SODIUM,NA 141.0 mEq/L (136-145)
[2025-04-10 10:49] LABS: POTASSIUM,K 4.6 mEq/L (3.5-5.1)
[2025-04-10 15:11] VITALS: BP 121/72; PULSE 87
== END 2025-04-10 11:35 | disposition home or self-care (01) ==
LOC: JD.ED 09:44
DX: S52.522A Torus fracture of lower end of left radius, initial encounter for closed fracture (principal); I13.0 Hypertensive heart and chronic kidney disease with heart failure and stage 1 through stage 4 chronic kidney disease, or unspecified chronic kidney disease; I50.43 Acute on chronic combined systolic (congestive) and diastolic (congestive) heart failure; N18.30 Chronic kidney disease, stage 3 unspecified; S01.81XA Laceration without foreign body of other part of head, initial encounter; S80.02XA Contusion of left knee, initial encounter; S80.01XA Contusion of right knee, initial encounter; S50.02XA Contusion of left elbow, initial encounter; I25.10 Atherosclerotic heart disease of native coronary artery without angina pectoris; I48.91 Unspecified atrial fibrillation; E78.00 Pure hypercholesterolemia, unspecified; I25.2 Old myocardial infarction; E66.9 Obesity, unspecified; Z86.16 Personal history of COVID-19; Z79.899 Other long term (current) drug therapy; Z79.01 Long term (current) use of anticoagulants; Z88.8 Allergy status to other drugs, medicaments and biological substances; Z91.048 Other nonmedicinal substance allergy status; Z88.1 Allergy status to other antibiotic agents; Z88.5 Allergy status to narcotic agent; Z88.2 Allergy status to sulfonamides; Z88.0 Allergy status to penicillin; Z91.040 Latex allergy status; Z68.42 Body mass index [BMI] 45.0-49.9, adult; W01.198A Fall on same level from slipping, tripping and stumbling with subsequent striking against other object, initial encounter
CPT/HCPCS: 36415; 70450; 70486; 73100; 73560; 80053; 82550; 85025; 85610; 99284; A9270